=== PATIENT | male | born 1985 | race Caucasian/White ===

== ENCOUNTER 2016-05-18 13:15 | Emergency (ER) | payer MEDICAID ==
[~2016-05-18 13:15] MED LIST: AUGM875T27 PO; DICL75TA PO; IBUP80TA PO; PERCOCET PO
[2016-05-18] MEDS ORDERED: ONDANSETRON 4MG/2ML VIAL (J2405) As Ordered ONE (13:44)
[2016-05-18] MEDS ORDERED: KETOROLAC 30 MG/ML VIAL (J1885) As Ordered ONE (13:45)
--- NOTE | 2016-05-18 14:03 | REP ---
Clinical: Renal colic. Findings: Lung bases clear. Liver, spleen, pancreas, gallbladder, bilateral adrenal glands and kidneys are normal. The enteric system is without obstruction or acute inflammatory process. Normal appendix identified in the right lower quadrant. Pelvis demonstrates normal bladder and age appropriate prostate/seminal vesicles. No ascites. No free air. Musculoskeletal structures intact. Impression: Normal noncontrast CT of the abdomen and pelvis. No acute abdominopelvic pathology appreciated. Signed by Adal Giordano MD 05/18/2016 01:55 P
[2016-05-18 14:25] LABS: BASO % 0.5 % (0.0-1.0); EOS # 0.3 K/mm3 (0.0-0.50); EOS % 3.9 % (0.0-3.0); LARGE UNSTAINED CELL # 0.2 K/mm3 (0.0-0.4); LYMPH # 1.8 K/mm3 (1.5-4.5); LYMPH % 20.7 % (24.0-44.0); MEAN CORPUSCULAR HEMOGLOBIN 28.9 pg (27.0-33.0); MEAN CORPUSCULAR HGB CONC 32.9 g/dl (32.0-36.5); MEAN CORPUSCULAR VOLUME 87.8 fl (80.0-96.0); MONO # 0.5 K/mm3 (0.0-0.8); MONO % 6.8 % (0.0-5.0); NEUTROPHILS # 4.9 K/mm3 (1.8-7.7); PLATELET COUNT, AUTOMATED 351 k/mm3 (150-450); RED CELL DISTRIBUTION WIDTH 12.5 % (11.5-14.5); WHITE BLOOD COUNT 7.5 K/mm3 (4.0-10.0)
--- NOTE | 2016-05-18 14:27 | REP ---
Clinical: Testicular pain. Technique: Christina scale and color Doppler evaluation using linear and curved array transducer with color Doppler evaluation. Findings: The testicles and epididymi are relatively normal in contour, size, echogenicity, vascularity and overall appearance/contour. There is no evidence for intratesticular mass lesion, infectious/inflammatory process, with torsion. No obvious hydroceles or varicoceles are identified. Right testicle measures 5.3 x 2.2 x 3.6 cm. Left testicle measures 5.1 x 2.2 x 3.3 cm. Impression: Essentially normal scrotal ultrasound. No significant pathology appreciated. No evidence for torsion or infectious process. Signed by Adal Giordano MD 05/18/2016 02:18 P
[2016-05-18 14:56] LABS: ANION GAP 11 MEQ/L (8-16); BLOOD UREA NITROGEN 11 MG/DL (7-18); CALCIUM LEVEL 8.4 MG/DL (8.5-10.1); CARBON DIOXIDE LEVEL 24 MEQ/L (21-32); CHLORIDE LEVEL 107 MEQ/L (98-107); CREATININE FOR GFR 0.96 MG/DL (0.70-1.30); GLOMERULAR FILTRATION RATE > 60.0 (>60); GLUCOSE, FASTING 111 MG/DL (70-105); POTASSIUM SERUM 3.9 MEQ/L (3.5-5.1); SODIUM LEVEL 142 MEQ/L (136-145)
[2016-05-18] MEDS ORDERED: DOXYCYCLINE HYCLATE 100 MG TAB As Ordered ONE (15:34)
--- NOTE | 2016-05-18 15:45 | EDDOCDS ---
Physician Documentation [facility] Name: Chidi Carpenter Age: 31 yrs Sex: Male : 1985 Arrival Date: 05/18/2016 Time: 13:15 Bed I4 / M4 Private MD: No Pcp Disposition: 05/18/16 15:26 Discharged to Home/Self Care. Impression: Epididymitis - Clinically. - Condition is Stable. - Discharge Instructions: Epididymitis. - Prescriptions for Ibuprofen 600 mg Oral Tablet - take 1 tablet by ORAL route every 6 hours As needed take with food; 30 tablet. Doxycycline Hyclate 100 mg Oral Tablet - take 1 tablet by ORAL route every 12 hours; 20 tablet. - Medication Reconciliation, Local Pharmacy Hours, Referral List Call for Appointment form. - Follow up: Lisa Vega MD; When: 4 - 5 days; Reason: Continuance of care. Follow up: Emergency Department; When: As needed; Reason: Worsening of conditions. - Problem is new. - Symptoms are unchanged. Historical: - Allergies: Morphine (Hives); - Home Meds: 1. Xanax 0.25 mg Oral tab twice a day as needed 2. Prozac Unknown Oral once daily - PMHx: MRSA; Depression; Substance Abuse; - PSHx: right wrist for MRSA; - Social history: Smoking status: Patient uses tobacco products, heavy tobacco smoker. No barriers to communication noted, The patient speaks fluent Mozambican, Speaks appropriately for age. - Family history: Not pertinent. - : The pt / caregiver states he / she is not on anticoagulants. Home medication list is obtained from the patient. - Exposure Risk Screening:: None identified. Vital Signs: 05/18 13:17 BP 131 / 79; Pulse 70; Resp 18; Temp 98.1(O); Pulse Ox 100% on R/A; Weight 66.22 kg / lr2 145.99 lbs (R); Height 6 ft. 1 in. (185.42 cm) (R); Pain 10/10; 15:11 BP 131 / 71; Pulse 78; Resp 16; Temp 97.9(O); Pulse Ox 98% on R/A; Pain 10/10; dem1 13:17 Body Mass Index 19.26 (66.22 kg, 185.42 cm) lr2 MDM: 13:37 Ondansetron 4 mg IVP once ordered. dk1 13:37 ketorolac 30 mg IVP once ordered. dk1 13:37 IV Saline Lock ordered. dk1 13:38 Basic Metabolic Profile Ordered. EDMS 13:38 CBC with Diff Ordered. EDMS 13:38 Urinalysis Ordered. EDMS 13:38 Urine Culture Ordered. EDMS 13:39 US Scrotal Ordered. EDMS 13:39 CT ABD & PELVIS: No Contrast Ordered. EDMS 13:42 DUPLEX SCAN LIMITED (DOPPLER) Ordered. EDMS 14:53 CBC with Diff Reviewed. dk1 14:53 Urinalysis Reviewed. dk1 14:53 CT ABD & PELVIS: No Contrast Reviewed. dk1 14:55 GC & Chlamydia Amplification Ordered. EDMS 15:01 Financial registration complete. mm15 15:06 [facility] Payment Agreement was scanned into [email or web address] and attached to record. mm15 15:15 Basic Metabolic Profile Reviewed. dk1 15:15 US Scrotal Reviewed. dk1 15:27 Doxycycline 100 mg PO once ordered. dk1 15:31 Drug Eval Toxicology ED Only Ordered. EDMS Administered Medications: 14:16 Drug: Ondansetron 4 mg [ondansetron HCl 2 mg/mL intravenous solution (2 mL)] Route: rs3 IVP; Site: right hand; 14:16 Drug: ketorolac 30 mg [ketorolac 30 mg/mL (1 mL) injection solution (1 mL)] Route: IVP; rs3 Site: right hand; 15:39 Drug: Doxycycline 100 mg [doxycycline hyclate 100 mg tablet (1 tabs)] Route: PO; rs3 Signatures: Dispatcher [employer] EDSD Bassam Cardozo RN RN mlb1 Reinaldo Smith, PA-C PA-C dk1 Kathy Bang RN RN rs3 Nicholas Sarkar mm15 The chart was reviewed and I authenticate all verbal orders and agree with the evaluation and treatment provided.Attachments: 15:06 [facility] Payment Agreement mm15 MTDD
--- NOTE | 2016-05-18 15:45 | EDDOCDS ---
Nurse's Notes [facility] Name: Chidi Carpenter Age: 31 yrs Sex: Male : 1985 Arrival Date: 05/18/2016 Time: 13:15 Bed I4 / M4 Private MD: No Pcp Diagnosis: Epididymitis-Clinically Presentation: 05/18 13:19 Presenting complaint: Patient states: Testicular pain began a month ago hematuria since mlb1 last night. Adult Sepsis Screening: The patient does not have new or worsening altered mentation. Patient's respiratory rate is less than 22. Systolic blood pressure is greater than 100. Patient has a qSOFA score of 0- Negative Sepsis Screen. Suicide/Homicide risk assessment- the patient denies having any suicidal and/or homicidal ideations and does not present with any other emotional, behavioral or mental health complaints. Status: Patient is not a manager of allied health services or dependent. Transition of care: patient was not received from another setting of care. 13:19 Acuity: MAITE Level 3 mlb1 13:19 Method Of Arrival: Walkin/Carried/Asstd mlb1 Triage Assessment: 13:23 General: Appears in no apparent distress, Behavior is appropriate for age, cooperative. mlb1 Pain: Location: left testicle and right testicle Pain currently is 10 out of 10 on a pain scale. HIV screening NA for this visit Offered previously. Historical: - Allergies: Morphine (Hives); - Home Meds: 1. Xanax 0.25 mg Oral tab twice a day as needed 2. Prozac Unknown Oral once daily - PMHx: MRSA; Depression; Substance Abuse; - PSHx: right wrist for MRSA; - Social history: Smoking status: Patient uses tobacco products, heavy tobacco smoker. No barriers to communication noted, The patient speaks fluent Venezuelan, Speaks appropriately for age. - Family history: Not pertinent. - : The pt / caregiver states he / she is not on anticoagulants. Home medication list is obtained from the patient. - Exposure Risk Screening:: None identified. Screenin:42 Screening information is obtained from the patient. Fall risk: No risks identified. rs3 Assistance ADL's: requires no assistance with activities of daily living. Abuse/DV Screen: The patient / caregiver reports he/she is: not in a situation that causes fear, pain or injury. Nutritional screening: No deficits noted. Advance Directives: Currently, there is no health care proxy. home support is adequate. Assessment: 14:17 General: Appears in no apparent distress, Behavior is appropriate for age, cooperative. rs3 Pain: Location: right testicle and left testicle. Respiratory: Airway is patent Respiratory effort is even, unlabored. Derm: Skin is pink, warm & dry. 15:44 Reassessment: Patient appears in no apparent distress at this time. Patient denies pain rs3 at this time. Patient states feeling better. Patient states symptoms have improved. Vital Signs: 13:17 BP 131 / 79; Pulse 70; Resp 18; Temp 98.1(O); Pulse Ox 100% on R/A; Weight 66.22 kg lr2 (R); Height 6 ft. 1 in. (185.42 cm) (R); Pain 10/10; 15:11 BP 131 / 71; Pulse 78; Resp 16; Temp 97.9(O); Pulse Ox 98% on R/A; Pain 10/10; dem1 13:17 Body Mass Index 19.26 (66.22 kg, 185.42 cm) lr2 Vitals: 13:17 Log In Time: May 18, 2016 at 13:15. lr2 ED Course: 13:16 Patient visited by Angelika Mena. lr2 13:16 Patient moved to Waiting lr2 13:18 No Pcp is Private Physician. lr2 13:18 Patient moved to Pre RCE lr2 13:19 Patient visited by Bassam Cardozo, RN. mlb1 13:20 Triage Initiated mlb1 13:23 Patient visited by Bassam Cardozo, RN. mlb1 13:23 Patient moved to Triage 2 mlb1 13:29 Reinaldo Smith PA-C is PHCP. dk1 13:29 Sal Holley MD is Attending Physician. dk1 13:29 Patient visited by Reinaldo Smith PA-C. dk1 13:41 Patient moved to I4 / M4 ms18 13:[address] dem1 14:04 Patient moved to Ultrasound am10 14:04 Patient moved to I4 / M4 am10 14:17 CBC with Diff Sent. rs3 14:17 Basic Metabolic Profile Sent. rs3 14:17 Inserted saline lock: 20 gauge in right hand. No procedures done that require rs3 assistance. 14:24 Patient visited by Kathy Bang RN. rs3 14:27 CT ABD & PELVIS: No Contrast Returned. EDMS 15:06 [facility] [place] Agreement was scanned into [employer] and attached to record. mm15 15:07 US Scrotal Returned. EDMS 15:12 Patient visited by William Talley. dem1 15:14 GC & Chlamydia Amplification Sent. dem1 15:26 Lisa Vega MD is Referral Physician. dk1 15:44 Patient visited by William Talley. dem1 15:44 The patient / caregiver is instructed regarding the plan of care and ED course. rs3 15:44 Drug Eval Toxicology ED Only Sent. dem1 Administered Medications: 14:16 Drug: Ondansetron 4 mg [ondansetron HCl 2 mg/mL intravenous solution (2 mL)] Route: rs3 IVP; Site: right hand; 14:16 Drug: ketorolac 30 mg [ketorolac 30 mg/mL (1 mL) injection solution (1 mL)] Route: IVP; rs3 Site: right hand; 15:39 Drug: Doxycycline 100 mg [doxycycline hyclate 100 mg tablet (1 tabs)] Route: PO; rs3 Order Results: Lab Order: Basic Metabolic Profile; SPEC'M 05/18/16 14:10 Test: GLUCOSE, FASTING; Value: 111; Range: 70-105; Abnormal: Above high normal; Units: MG/DL; Status: F Test: BLOOD UREA NITROGEN; Value: 11; Range: 7-18; Units: MG/DL; Status: F Test: CREATININE FOR GFR; Value: 0.96; Range: 0.70-1.30; Units: MG/DL; Status: F Test: GLOMERULAR FILTRATION RATE; Value: > 60.0; Range: >60; Status: F Test: SODIUM LEVEL; Value: 142; Range: 136-145; Units: MEQ/L; Status: F Test: POTASSIUM SERUM; Value: 3.9; Range: 3.5-5.1; Units: MEQ/L; Status: F Test: CHLORIDE LEVEL; Value: 107; Range: 98-107; Units: MEQ/L; Status: F Test: CARBON DIOXIDE LEVEL; Value: 24; Range: 21-32; Units: MEQ/L; Status: F Test: ANION GAP; Value: 11; Range: 8-16; Units: MEQ/L; Status: F Test: CALCIUM LEVEL; Value: 8.4; Range: 8.5-10.1; Abnormal: Below low normal; Units: MG/DL; Status: F Test Note: ; Units are mL/min/1.73 m2 Chronic Kidney Disease Staging per NKF: Stage I & II GFR >=60 Normal to Mildly Decreased Stage III GFR 30-59 Moderately Decreased Stage IV GFR 15-29 Severely Decreased Stage V GFR <15 Very Little GFR Left ESRD GFR <15 on BRONC BUSTER Lab Order: CBC with Diff; SPEC'M 05/18/16 14:10 Test: WHITE BLOOD COUNT; Value: 7.5; Range: 4.0-10.0; Units: K/mm3; Status: F Test: RED BLOOD COUNT; Value: 5.46; Range: 4.30-6.10; Units: M/mm3; Status: F Test: HEMOGLOBIN; Value: 15.8; Range: 14.0-18.0; Units: g/dl; Status: F Test: HEMATOCRIT; Value: 47.9; Range: 42.0-52.0; Units: %; Status: F Test: MEAN CORPUSCULAR VOLUME; Value: 87.8; Range: 80.0-96.0; Units: fl; Status: F Test: MEAN CORPUSCULAR HEMOGLOBIN; Value: 28.9; Range: 27.0-33.0; Units: pg; Status: F Test: MEAN CORPUSCULAR HGB CONC; Value: 32.9; Range: 32.0-36.5; Units: g/dl; Status: F Test: RED CELL DISTRIBUTION WIDTH; Value: 12.5; Range: 11.5-14.5; Units: %; Status: F Test: PLATELET COUNT, AUTOMATED; Value: 351; Range: 150-450; Units: k/mm3; Status: F Test: NEUTROPHILS %; Value: 65.0; Range: 36.0-66.0; Units: %; Status: F Test: LYMPH %; Value: 20.7; Range: 24.0-44.0; Abnormal: Below low normal; Units: %; Status: F Test: MONO %; Value: 6.8; Range: 0.0-5.0; Abnormal: Above high normal; Units: %; Status: F Test: EOS %; Value: 3.9; Range: 0.0-3.0; Abnormal: Above high normal; Units: %; Status: F Test: BASO %; Value: 0.5; Range: 0.0-1.0; Units: %; Status: F Test: LARGE UNSTAINED CELL %; Value: 3.0; Range: 0.0-4.0; Units: %; Status: F Test: NEUTROPHILS #; Value: 4.9; Range: 1.8-7.7; Units: K/mm3; Status: F Test: LYMPH #; Value: 1.8; Range: 1.5-4.5; Units: K/mm3; Status: F Test: MONO #; Value: 0.5; Range: 0.0-0.8; Units: K/mm3; Status: F Test: EOS #; Value: 0.3; Range: 0.0-0.50; Units: K/mm3; Status: F Test: BASO #; Value: 0.0; Range: 0.0-0.2; Units: K/mm3; Status: F Test: LARGE UNSTAINED CELL #; Value: 0.2; Range: 0.0-0.4; Units: K/mm3; Status: F Lab Order: Urinalysis; SPEC'M 05/18/16 13:45 Test: APPEARANCE, URINE; Value: CLEAR; Range: CLEAR; Status: F Test: COLOR, URINE; Value: ELIZABETH; Range: YELLOW; Status: F Test: PH,URINE; Value: 6.0; Range: 5.0-9.0; Units: UNITS; Status: F Test: SPECIFIC GRAVITY URINE AUTO; Value: 1.038; Range: 1.002-1.035; Status: F Test: PROTEIN, URINE AUTO; Value: 1+; Range: NEGATIVE; Abnormal: Above high normal; Units: mg/dL; Status: F Test: GLUCOSE, URINE (UA) AUTO; Value: NEGATIVE; Range: NEGATIVE; Units: mg/dL; Status: F Test: KETONE, URINE AUTO; Value: TRACE; Range: NEGATIVE; Abnormal: Above high normal; Units: mg/dL; Status: F Test: UROBILINOGEN, URINE AUTO; Value: 4.0; Range: 0.0-2.0; Abnormal: Above high normal; Units: mg/dL; Status: F Test: BILIRUBIN, URINE AUTO; Value: NEGATIVE; Range: NEGATIVE; Status: F Test: NITRITE, URINE AUTO; Value: NEGATIVE; Range: NEGATIVE; Status: F Test: LEUKOCYTE ESTERASE, URINE AUTO; Value: NEGATIVE; Range: NEGATIVE; Status: F Test: BLOOD, URINE BLOOD; Value: NEGATIVE; Range: NEGATIVE; Status: F Test: WBC, URINE AUTO; Value: 0; Range: 0-3; Units: /HPF; Status: F Test: RBC, URINE AUTO; Value: 2; Range: 0-3; Units: /HPF; Status: F Test: BACTERIA, URINE AUTO; Value: NEGATIVE; Range: NEGATIVE; Status: F Test: SQUAMOUS EPITHELIAL CELL UR AU; Value: 1; Range: 0-6; Units: /HPF; Status: F Test: MUCUS, URINE; Value: SMALL; Range: NEGATIVE; Status: F Test: HYALINE CAST, URINE AUTO; Value: 0; Range: 0-1; Units: /LPF; Status: F Radiology Order: CT ABD & PELVIS: No Contrast Test: CT ABD & PELVIS: No Contrast REASON FOR EXAMINATION: Renal colic; Clinical: Renal colic.; ; Findings:; Lung bases clear.; ; Liver, spleen, pancreas, gallbladder, bilateral adrenal glands and kidneys are; normal. The enteric system is without obstruction or acute inflammatory process.; Normal appendix identified in the right lower quadrant. Pelvis demonstrates; normal bladder and age appropriate prostate/seminal vesicles. No ascites. No; free air. Musculoskeletal structures intact.; ; Impression:; Normal noncontrast CT of the abdomen and pelvis.; No acute abdominopelvic pathology appreciated.; ; ; Signed by; Adal Giordano MD 05/18/2016 01:55 P; Radiology Order: US Scrotal Test: US Scrotal REASON FOR EXAMINATION: testicular pain; Clinical: Testicular pain.; ; Technique: Christina scale and color Doppler evaluation using linear and curved array; transducer with color Doppler evaluation.; ; Findings:; The testicles and epididymi are relatively normal in contour, size, echogenicity,; vascularity and overall appearance/contour. There is no evidence for; intratesticular mass lesion, infectious/inflammatory process, with torsion. No; obvious hydroceles or varicoceles are identified.; ; Right testicle measures 5.3 x 2.2 x 3.6 cm.; Left testicle measures 5.1 x 2.2 x 3.3 cm.; ; Impression:; Essentially normal scrotal ultrasound.; No significant pathology appreciated.; No evidence for torsion or infectious process.; ; ; Signed by; Adal Giordano MD 05/18/2016 02:18 P; Outcome: 15:26 Discharge ordered by Provider. dk1 15:42 Discharge Assessment: patient administered narcotics - no. The following High Risk rs3 Discharge criteria are identified: None. Discharged to home with family. Condition: stable. Discharge instructions given to patient, Instructed on discharge instructions, follow up and referral plans. medication usage, Demonstrated understanding of instructions, medications, Pt was receptive of discharge instructions/ teaching. Prescriptions given X 2. Ultrasound Study completed. Property :Personal belongings accompany Pt. 15:44 Patient left the ED. rs3 Signatures: Dispatcher [employer] EDMS Bassam Cardozo RN RN mlb1 Reinaldo Smith, PA-C PA-C dk1 Zoila Bravo am10 Kathy Bang,RN RN rs3 William Talley1 Nicholas Sarkar mm15 Cami Kendall RN RN ms18 Angelika Mena2 MTDD
[2016-05-18 16:13] LABS: AMPHETAMINES LEVEL URINE POSITIVE (NEGATIVE); BENZODIAZEPINES URINE POSITIVE (NEGATIVE); COCAINE METABOLITE URINE POSITIVE (NEGATIVE); CONTROL LINE INT CTR LINE PRESENT; METHADONE URINE NEGATIVE (NEGATIVE); OPIATES URINE POSITIVE (NEGATIVE); TRICYCLIC ANTIDEPRESS URINE NEGATIVE (NEGATIVE)
--- NOTE | 2016-05-20 16:45 | EDDOCDS ---
Physician Documentation [facility] Name: Chidi Carpenter Age: 31 yrs Sex: Male : 1985 Arrival Date: 05/18/2016 Time: 13:15 Bed I4 / M4 Private MD: No Pcp Disposition: 05/18/16 15:26 Discharged to Home/Self Care. Impression: Epididymitis - Clinically. - Condition is Stable. - Discharge Instructions: Epididymitis. - Prescriptions for Ibuprofen 600 mg Oral Tablet - take 1 tablet by ORAL route every 6 hours As needed take with food; 30 tablet. Doxycycline Hyclate 100 mg Oral Tablet - take 1 tablet by ORAL route every 12 hours; 20 tablet. - Medication Reconciliation, Local Pharmacy Hours, Referral List Call for Appointment form. - Follow up: Lisa Vega MD; When: 4 - 5 days; Reason: Continuance of care. Follow up: Emergency Department; When: As needed; Reason: Worsening of conditions. - Problem is new. - Symptoms are unchanged. Historical: - Allergies: Morphine (Hives); - Home Meds: 1. Xanax 0.25 mg Oral tab twice a day as needed 2. Prozac Unknown Oral once daily - PMHx: MRSA; Depression; Substance Abuse; - PSHx: right wrist for MRSA; - Social history: Smoking status: Patient uses tobacco products, heavy tobacco smoker. No barriers to communication noted, The patient speaks fluent Taiwanese, Speaks appropriately for age. - Family history: Not pertinent. - : The pt / caregiver states he / she is not on anticoagulants. Home medication list is obtained from the patient. - Exposure Risk Screening:: None identified. Vital Signs: 05/18 13:17 BP 131 / 79; Pulse 70; Resp 18; Temp 98.1(O); Pulse Ox 100% on R/A; Weight 66.22 kg / lr2 145.99 lbs (R); Height 6 ft. 1 in. (185.42 cm) (R); Pain 10/10; 15:11 BP 131 / 71; Pulse 78; Resp 16; Temp 97.9(O); Pulse Ox 98% on R/A; Pain 10/10; dem1 13:17 Body Mass Index 19.26 (66.22 kg, 185.42 cm) lr2 MDM: 13:37 Ondansetron 4 mg IVP once ordered. dk1 13:37 ketorolac 30 mg IVP once ordered. dk1 13:37 IV Saline Lock ordered. dk1 13:38 Basic Metabolic Profile Ordered. EDMS 13:38 CBC with Diff Ordered. EDMS 13:38 Urinalysis Ordered. EDMS 13:38 Urine Culture Ordered. EDMS 13:39 US Scrotal Ordered. EDMS 13:39 CT ABD & PELVIS: No Contrast Ordered. EDMS 13:42 DUPLEX SCAN LIMITED (DOPPLER) Ordered. EDMS 14:53 CBC with Diff Reviewed. dk1 14:53 Urinalysis Reviewed. dk1 14:53 CT ABD & PELVIS: No Contrast Reviewed. dk1 14:55 GC & Chlamydia Amplification Ordered. EDMS 15:01 Financial registration complete. mm15 15:06 [facility] Payment Agreement was scanned into [employer] and attached to record. mm15 15:15 Basic Metabolic Profile Reviewed. dk1 15:15 US Scrotal Reviewed. dk1 15:27 Doxycycline 100 mg PO once ordered. dk1 15:31 Drug Eval Toxicology ED Only Ordered. EDCT 05/19 08:52 T-Sheet-- Draft Copy was scanned into [employer] and attached to record. [facility] Administered Medications: 05/18 14:16 Drug: Ondansetron 4 mg [ondansetron HCl 2 mg/mL intravenous solution (2 mL)] Route: rs3 IVP; Site: right hand; 14:16 Drug: ketorolac 30 mg [ketorolac 30 mg/mL (1 mL) injection solution (1 mL)] Route: IVP; rs3 Site: right hand; 15:39 Drug: Doxycycline 100 mg [doxycycline hyclate 100 mg tablet (1 tabs)] Route: PO; rs3 Signatures: Dispatcher [employer] [facility] Bassam Cardozo RN RN mlb1 Reinaldo Smith PA-C PA-C dk1 Kathy Bang RN RN rs3 Nicholas Sarkar 15 Mary Beth Sanchez [facility] The chart was reviewed and I authenticate all verbal orders and agree with the evaluation and treatment provided.Attachments: 15:06 [facility] Payment Agreement [facility] 05/19 08:52 T-Sheet-- Draft Copy [facility] Chart Complete MTDD
--- NOTE | 2016-05-20 16:45 | EDDOCDS ---
Nurse's Notes [facility] Name: Chidi Carpenter Age: 31 yrs Sex: Male : 1985 Arrival Date: 05/18/2016 Time: 13:15 Bed I4 / M4 Private MD: No Pcp Diagnosis: Epididymitis-Clinically Presentation: 05/18 13:19 Presenting complaint: Patient states: Testicular pain began a month ago hematuria since mlb1 last night. Adult Sepsis Screening: The patient does not have new or worsening altered mentation. Patient's respiratory rate is less than 22. Systolic blood pressure is greater than 100. Patient has a qSOFA score of 0- Negative Sepsis Screen. Suicide/Homicide risk assessment- the patient denies having any suicidal and/or homicidal ideations and does not present with any other emotional, behavioral or mental health complaints. Status: Patient is not a customer service advisor or dependent. Transition of care: patient was not received from another setting of care. 13:19 Acuity: MAITE Level 3 mlb1 13:19 Method Of Arrival: Walkin/Carried/Asstd mlb1 Triage Assessment: 13:23 General: Appears in no apparent distress, Behavior is appropriate for age, cooperative. mlb1 Pain: Location: left testicle and right testicle Pain currently is 10 out of 10 on a pain scale. HIV screening NA for this visit Offered previously. Historical: - Allergies: Morphine (Hives); - Home Meds: 1. Xanax 0.25 mg Oral tab twice a day as needed 2. Prozac Unknown Oral once daily - PMHx: MRSA; Depression; Substance Abuse; - PSHx: right wrist for MRSA; - Social history: Smoking status: Patient uses tobacco products, heavy tobacco smoker. No barriers to communication noted, The patient speaks fluent Faroese, Speaks appropriately for age. - Family history: Not pertinent. - : The pt / caregiver states he / she is not on anticoagulants. Home medication list is obtained from the patient. - Exposure Risk Screening:: None identified. Screenin:42 Screening information is obtained from the patient. Fall risk: No risks identified. rs3 Assistance ADL's: requires no assistance with activities of daily living. Abuse/DV Screen: The patient / caregiver reports he/she is: not in a situation that causes fear, pain or injury. Nutritional screening: No deficits noted. Advance Directives: Currently, there is no health care proxy. home support is adequate. Assessment: 14:17 General: Appears in no apparent distress, Behavior is appropriate for age, cooperative. rs3 Pain: Location: right testicle and left testicle. Respiratory: Airway is patent Respiratory effort is even, unlabored. Derm: Skin is pink, warm & dry. 15:44 Reassessment: Patient appears in no apparent distress at this time. Patient denies pain rs3 at this time. Patient states feeling better. Patient states symptoms have improved. Vital Signs: 13:17 BP 131 / 79; Pulse 70; Resp 18; Temp 98.1(O); Pulse Ox 100% on R/A; Weight 66.22 kg lr2 (R); Height 6 ft. 1 in. (185.42 cm) (R); Pain 10/10; 15:11 BP 131 / 71; Pulse 78; Resp 16; Temp 97.9(O); Pulse Ox 98% on R/A; Pain 10/10; dem1 13:17 Body Mass Index 19.26 (66.22 kg, 185.42 cm) lr2 Vitals: 13:17 Log In Time: May 18, 2016 at 13:15. lr2 ED Course: 13:16 Patient visited by Angelika Mena. lr2 13:16 Patient moved to Waiting lr2 13:18 No Pcp is Private Physician. lr2 13:18 Patient moved to Pre RCE lr2 13:19 Patient visited by Bassam Cardozo, RN. mlb1 13:20 Triage Initiated mlb1 13:23 Patient visited by Bassam Cardozo, RN. mlb1 13:23 Patient moved to Triage 2 mlb1 13:29 Reinaldo Smith PA-C is PHCP. dk1 13:29 Sal Holley MD is Attending Physician. dk1 13:29 Patient visited by Reinaldo Smith PA-C. dk1 13:41 Patient moved to I4 / M4 ms18 13:[address] dem1 14:04 Patient moved to Ultrasound am10 14:04 Patient moved to I4 / M4 am10 14:17 CBC with Diff Sent. rs3 14:17 Basic Metabolic Profile Sent. rs3 14:17 Inserted saline lock: 20 gauge in right hand. No procedures done that require rs3 assistance. 14:24 Patient visited by Kathy Bang RN. rs3 14:27 CT ABD & PELVIS: No Contrast Returned. EDMS 15:06 [facility] [place] was scanned into [employer] and attached to record. mm15 15:07 US Scrotal Returned. EDMS 15:12 Patient visited by William Talley. dem1 15:14 GC & Chlamydia Amplification Sent. dem1 15:26 Lisa Vega MD is Referral Physician. dk1 15:44 Patient visited by William Talley. dem1 15:44 The patient / caregiver is instructed regarding the plan of care and ED course. rs3 15:44 Drug Eval Toxicology ED Only Sent. dem1 05/19 08:52 T-Sheet-- Draft Copy was scanned into [employer] and attached to record. [facility] Administered Medications: 05/18 14:16 Drug: Ondansetron 4 mg [ondansetron HCl 2 mg/mL intravenous solution (2 mL)] Route: rs3 IVP; Site: right hand; 14:16 Drug: ketorolac 30 mg [ketorolac 30 mg/mL (1 mL) injection solution (1 mL)] Route: IVP; rs3 Site: right hand; 15:39 Drug: Doxycycline 100 mg [doxycycline hyclate 100 mg tablet (1 tabs)] Route: PO; rs3 Order Results: Lab Order: Basic Metabolic Profile; SPEC'M 05/18/16 14:10 Test: GLUCOSE, FASTING; Value: 111; Range: 70-105; Abnormal: Above high normal; Units: MG/DL; Status: F Test: BLOOD UREA NITROGEN; Value: 11; Range: 7-18; Units: MG/DL; Status: F Test: CREATININE FOR GFR; Value: 0.96; Range: 0.70-1.30; Units: MG/DL; Status: F Test: GLOMERULAR FILTRATION RATE; Value: > 60.0; Range: >60; Status: F Test: SODIUM LEVEL; Value: 142; Range: 136-145; Units: MEQ/L; Status: F Test: POTASSIUM SERUM; Value: 3.9; Range: 3.5-5.1; Units: MEQ/L; Status: F Test: CHLORIDE LEVEL; Value: 107; Range: 98-107; Units: MEQ/L; Status: F Test: CARBON DIOXIDE LEVEL; Value: 24; Range: 21-32; Units: MEQ/L; Status: F Test: ANION GAP; Value: 11; Range: 8-16; Units: MEQ/L; Status: F Test: CALCIUM LEVEL; Value: 8.4; Range: 8.5-10.1; Abnormal: Below low normal; Units: MG/DL; Status: F Test Note: ; Units are mL/min/1.73 m2 Chronic Kidney Disease Staging per NKF: Stage I & II GFR >=60 Normal to Mildly Decreased Stage III GFR 30-59 Moderately Decreased Stage IV GFR 15-29 Severely Decreased Stage V GFR <15 Very Little GFR Left ESRD GFR <15 on BODY FORMER Lab Order: CBC with Diff; SPEC'M 05/18/16 14:10 Test: WHITE BLOOD COUNT; Value: 7.5; Range: 4.0-10.0; Units: K/mm3; Status: F Test: RED BLOOD COUNT; Value: 5.46; Range: 4.30-6.10; Units: M/mm3; Status: F Test: HEMOGLOBIN; Value: 15.8; Range: 14.0-18.0; Units: g/dl; Status: F Test: HEMATOCRIT; Value: 47.9; Range: 42.0-52.0; Units: %; Status: F Test: MEAN CORPUSCULAR VOLUME; Value: 87.8; Range: 80.0-96.0; Units: fl; Status: F Test: MEAN CORPUSCULAR HEMOGLOBIN; Value: 28.9; Range: 27.0-33.0; Units: pg; Status: F Test: MEAN CORPUSCULAR HGB CONC; Value: 32.9; Range: 32.0-36.5; Units: g/dl; Status: F Test: RED CELL DISTRIBUTION WIDTH; Value: 12.5; Range: 11.5-14.5; Units: %; Status: F Test: PLATELET COUNT, AUTOMATED; Value: 351; Range: 150-450; Units: k/mm3; Status: F Test: NEUTROPHILS %; Value: 65.0; Range: 36.0-66.0; Units: %; Status: F Test: LYMPH %; Value: 20.7; Range: 24.0-44.0; Abnormal: Below low normal; Units: %; Status: F Test: MONO %; Value: 6.8; Range: 0.0-5.0; Abnormal: Above high normal; Units: %; Status: F Test: EOS %; Value: 3.9; Range: 0.0-3.0; Abnormal: Above high normal; Units: %; Status: F Test: BASO %; Value: 0.5; Range: 0.0-1.0; Units: %; Status: F Test: LARGE UNSTAINED CELL %; Value: 3.0; Range: 0.0-4.0; Units: %; Status: F Test: NEUTROPHILS #; Value: 4.9; Range: 1.8-7.7; Units: K/mm3; Status: F Test: LYMPH #; Value: 1.8; Range: 1.5-4.5; Units: K/mm3; Status: F Test: MONO #; Value: 0.5; Range: 0.0-0.8; Units: K/mm3; Status: F Test: EOS #; Value: 0.3; Range: 0.0-0.50; Units: K/mm3; Status: F Test: BASO #; Value: 0.0; Range: 0.0-0.2; Units: K/mm3; Status: F Test: LARGE UNSTAINED CELL #; Value: 0.2; Range: 0.0-0.4; Units: K/mm3; Status: F Lab Order: Urinalysis; SPEC'M 05/18/16 13:45 Test: APPEARANCE, URINE; Value: CLEAR; Range: CLEAR; Status: F Test: COLOR, URINE; Value: ELIZABETH; Range: YELLOW; Status: F Test: PH,URINE; Value: 6.0; Range: 5.0-9.0; Units: UNITS; Status: F Test: SPECIFIC GRAVITY URINE AUTO; Value: 1.038; Range: 1.002-1.035; Status: F Test: PROTEIN, URINE AUTO; Value: 1+; Range: NEGATIVE; Abnormal: Above high normal; Units: mg/dL; Status: F Test: GLUCOSE, URINE (UA) AUTO; Value: NEGATIVE; Range: NEGATIVE; Units: mg/dL; Status: F Test: KETONE, URINE AUTO; Value: TRACE; Range: NEGATIVE; Abnormal: Above high normal; Units: mg/dL; Status: F Test: UROBILINOGEN, URINE AUTO; Value: 4.0; Range: 0.0-2.0; Abnormal: Above high normal; Units: mg/dL; Status: F Test: BILIRUBIN, URINE AUTO; Value: NEGATIVE; Range: NEGATIVE; Status: F Test: NITRITE, URINE AUTO; Value: NEGATIVE; Range: NEGATIVE; Status: F Test: LEUKOCYTE ESTERASE, URINE AUTO; Value: NEGATIVE; Range: NEGATIVE; Status: F Test: BLOOD, URINE BLOOD; Value: NEGATIVE; Range: NEGATIVE; Status: F Test: WBC, URINE AUTO; Value: 0; Range: 0-3; Units: /HPF; Status: F Test: RBC, URINE AUTO; Value: 2; Range: 0-3; Units: /HPF; Status: F Test: BACTERIA, URINE AUTO; Value: NEGATIVE; Range: NEGATIVE; Status: F Test: SQUAMOUS EPITHELIAL CELL UR AU; Value: 1; Range: 0-6; Units: /HPF; Status: F Test: MUCUS, URINE; Value: SMALL; Range: NEGATIVE; Status: F Test: HYALINE CAST, URINE AUTO; Value: 0; Range: 0-1; Units: /LPF; Status: F Lab Order: Urine Culture; SPEC'M 05/18/16 13:45 Test: URINE CULTURE; Value: <EXTERNAL COMMENT eCWMed> FULL REPORT IN LAB NOTES (eCW and Medent).; Status: F Test: URINE CULTURE; Value: ORGANISM 1: STREP AGALACTIAE GROUP B; Status: F Test: URINE CULTURE; Value: STREP AGALACTIAE GROUP B; Status: F Test: URINE CULTURE; Value: COLONY COUNT CFU/ml 20,000; Status: F Test: URINE CULTURE; Value: GRAM POS SENSI - ST02; Status: F Test: URINE CULTURE; Value: Method: VIT2; Status: F Test: URINE CULTURE; Value: ICR (INDUCIBLE CC RESISTANCE) -; Status: F Test: URINE CULTURE; Value: TETRACYCLINE >=16 R; Status: F Test: URINE CULTURE; Value: PENICILLIN G <=0.06 S; Status: F Test: URINE CULTURE; Value: TRIMETHOPRIM/SULFAMETHOXAZOLE <=10 S; Status: F Test: URINE CULTURE; Value: AMPICILLIN <=0.25 S; Status: F Test: URINE CULTURE; Value: ERYTHROMYCIN >=8 R; Status: F Test: URINE CULTURE; Value: LEVOFLOXACIN 1 S; Status: F Test: URINE CULTURE; Value: VANCOMYCIN 0.5 S; Status: F Test: URINE CULTURE; Value: MOXIFLOXACIN (AVELOX) 0.12 S; Status: F Test: URINE CULTURE; Value: CEFTRIAXONE <=0.12 S; Status: F Test: URINE CULTURE; Value: CEFOTAXIME <=0.12 S; Status: F Lab Order: GC & Chlamydia Amplification; SPEC'M 05/18/16 15:14 Test: CHLAMYDIA DNA AMPLIFICATION; Value: NEGATIVE; Range: NEGATIVE; Status: F Test: GC DNA AMPLIFICATION; Value: NEGATIVE; Range: NEGATIVE; Status: F Lab Order: Drug Eval Toxicology ED Only; SPEC'M 05/18/16 15:14 Test: AMPHETAMINES LEVEL URINE; Value: POSITIVE; Range: NEGATIVE; Abnormal: Above high normal; Status: F Test: BARBITURATES URINE; Value: POSITIVE; Range: NEGATIVE; Abnormal: Above high normal; Status: F Test: BENZODIAZEPINES URINE; Value: POSITIVE; Range: NEGATIVE; Abnormal: Above high normal; Status: F Test: CANNABINOIDS URINE; Value: POSITIVE; Range: NEGATIVE; Abnormal: Above high normal; Status: F Test: COCAINE METABOLITE URINE; Value: POSITIVE; Range: NEGATIVE; Abnormal: Above high normal; Status: F Test: METHADONE URINE; Value: NEGATIVE; Range: NEGATIVE; Status: F Test: OPIATES URINE; Value: POSITIVE; Range: NEGATIVE; Abnormal: Above high normal; Status: F Test: TRICYCLIC ANTIDEPRESS URINE; Value: NEGATIVE; Range: NEGATIVE; Status: F Test Note: ; FALSE POSITIVE RESULTS CAN BE CAUSED BY THE USE OF PANTOPRAZOLE (PROTONIX). Radiology Order: CT ABD & PELVIS: No Contrast Test: CT ABD & PELVIS: No Contrast REASON FOR EXAMINATION: Renal colic; Clinical: Renal colic.; ; Findings:; Lung bases clear.; ; Liver, spleen, pancreas, gallbladder, bilateral adrenal glands and kidneys are; normal. The enteric system is without obstruction or acute inflammatory process.; Normal appendix identified in the right lower quadrant. Pelvis demonstrates; normal bladder and age appropriate prostate/seminal vesicles. No ascites. No; free air. Musculoskeletal structures intact.; ; Impression:; Normal noncontrast CT of the abdomen and pelvis.; No acute abdominopelvic pathology appreciated.; ; ; Signed by; Adal Giordano MD 05/18/2016 01:55 P; Radiology Order: US Scrotal Test: US Scrotal REASON FOR EXAMINATION: testicular pain; Clinical: Testicular pain.; ; Technique: Christina scale and color Doppler evaluation using linear and curved array; transducer with color Doppler evaluation.; ; Findings:; The testicles and epididymi are relatively normal in contour, size, echogenicity,; vascularity and overall appearance/contour. There is no evidence for; intratesticular mass lesion, infectious/inflammatory process, with torsion. No; obvious hydroceles or varicoceles are identified.; ; Right testicle measures 5.3 x 2.2 x 3.6 cm.; Left testicle measures 5.1 x 2.2 x 3.3 cm.; ; Impression:; Essentially normal scrotal ultrasound.; No significant pathology appreciated.; No evidence for torsion or infectious process.; ; ; Signed by; Adal Giordano MD 05/18/2016 02:18 P; Outcome: 15:26 Discharge ordered by Provider. dk1 15:42 Discharge Assessment: patient administered narcotics - no. The following High Risk rs3 Discharge criteria are identified: None. Discharged to home with family. Condition: stable. Discharge instructions given to patient, Instructed on discharge instructions, follow up and referral plans. medication usage, Demonstrated understanding of instructions, medications, Pt was receptive of discharge instructions/ teaching. Prescriptions given X 2. Ultrasound Study completed. Property :Personal belongings accompany Pt. 15:44 Patient left the ED. rs3 Signatures: Dispatcher [employer] EDOR Bassam Cardozo RN RN mlb1 Reinaldo Smith, PA-C PA-C dk1 Zoila Bravo am10 Kathy BangRN RN rs3 William Talley1 Nicholas Sarkar mm15 Cami Kendall RN RN ms18 Mary Beth Sanchez Laura lr2 Chart Complete MTDD
--- NOTE | 2016-05-20 16:45 | EDDOCDS ---
Physician Documentation [facility] Name: Chidi Carpenter Age: 31 yrs Sex: Male : 1985 Arrival Date: 05/18/2016 Time: 13:15 Bed I4 / M4 Private MD: No Pcp Disposition: 05/18/16 15:26 Discharged to Home/Self Care. Impression: Epididymitis - Clinically. - Condition is Stable. - Discharge Instructions: Epididymitis. - Prescriptions for Ibuprofen 600 mg Oral Tablet - take 1 tablet by ORAL route every 6 hours As needed take with food; 30 tablet. Doxycycline Hyclate 100 mg Oral Tablet - take 1 tablet by ORAL route every 12 hours; 20 tablet. - Medication Reconciliation, Local Pharmacy Hours, Referral List Call for Appointment form. - Follow up: Lisa Vega MD; When: 4 - 5 days; Reason: Continuance of care. Follow up: Emergency Department; When: As needed; Reason: Worsening of conditions. - Problem is new. - Symptoms are unchanged. Historical: - Allergies: Morphine (Hives); - Home Meds: 1. Xanax 0.25 mg Oral tab twice a day as needed 2. Prozac Unknown Oral once daily - PMHx: MRSA; Depression; Substance Abuse; - PSHx: right wrist for MRSA; - Social history: Smoking status: Patient uses tobacco products, heavy tobacco smoker. No barriers to communication noted, The patient speaks fluent Wallisian, Speaks appropriately for age. - Family history: Not pertinent. - : The pt / caregiver states he / she is not on anticoagulants. Home medication list is obtained from the patient. - Exposure Risk Screening:: None identified. Vital Signs: 05/18 13:17 BP 131 / 79; Pulse 70; Resp 18; Temp 98.1(O); Pulse Ox 100% on R/A; Weight 66.22 kg / lr2 145.99 lbs (R); Height 6 ft. 1 in. (185.42 cm) (R); Pain 10/10; 15:11 BP 131 / 71; Pulse 78; Resp 16; Temp 97.9(O); Pulse Ox 98% on R/A; Pain 10/10; dem1 13:17 Body Mass Index 19.26 (66.22 kg, 185.42 cm) lr2 MDM: 13:37 Ondansetron 4 mg IVP once ordered. dk1 13:37 ketorolac 30 mg IVP once ordered. dk1 13:37 IV Saline Lock ordered. dk1 13:38 Basic Metabolic Profile Ordered. EDMS 13:38 CBC with Diff Ordered. EDMS 13:38 Urinalysis Ordered. EDMS 13:38 Urine Culture Ordered. EDMS 13:39 US Scrotal Ordered. EDMS 13:39 CT ABD & PELVIS: No Contrast Ordered. EDMS 13:42 DUPLEX SCAN LIMITED (DOPPLER) Ordered. EDMS 14:53 CBC with Diff Reviewed. dk1 14:53 Urinalysis Reviewed. dk1 14:53 CT ABD & PELVIS: No Contrast Reviewed. dk1 14:55 GC & Chlamydia Amplification Ordered. EDMS 15:01 Financial registration complete. mm15 15:06 [facility] Payment Agreement was scanned into [employer] and attached to record. mm15 15:15 Basic Metabolic Profile Reviewed. dk1 15:15 US Scrotal Reviewed. dk1 15:27 Doxycycline 100 mg PO once ordered. dk1 15:31 Drug Eval Toxicology ED Only Ordered. EDMO 05/19 08:52 T-Sheet-- Draft Copy was scanned into [employer] and attached to record. [facility] Administered Medications: 05/18 14:16 Drug: Ondansetron 4 mg [ondansetron HCl 2 mg/mL intravenous solution (2 mL)] Route: rs3 IVP; Site: right hand; 14:16 Drug: ketorolac 30 mg [ketorolac 30 mg/mL (1 mL) injection solution (1 mL)] Route: IVP; rs3 Site: right hand; 15:39 Drug: Doxycycline 100 mg [doxycycline hyclate 100 mg tablet (1 tabs)] Route: PO; rs3 Signatures: Dispatcher [employer] [facility] Bassam Cardozo RN RN mlb1 Reinaldo Smith PA-C PA-C dk1 Kathy Bang RN RN rs3 Nicholas Sarkar 15 Mary Beth Sanchez [facility] The chart was reviewed and I authenticate all verbal orders and agree with the evaluation and treatment provided.Attachments: 15:06 [facility] Payment Agreement [facility] 05/19 08:52 T-Sheet-- Draft Copy [facility] Chart Complete MTDD
--- NOTE | 2016-05-23 10:10 | EDDOCDS ---
Physician Documentation [facility] Name: Chidi Carpenter Age: 31 yrs Sex: Male : 1985 Arrival Date: 05/18/2016 Time: 13:15 Bed I4 / M4 Private MD: No Pcp Disposition: 05/18/16 15:26 Discharged to Home/Self Care. Impression: Epididymitis - Clinically. - Condition is Stable. - Discharge Instructions: Epididymitis. - Prescriptions for Ibuprofen 600 mg Oral Tablet - take 1 tablet by ORAL route every 6 hours As needed take with food; 30 tablet. Doxycycline Hyclate 100 mg Oral Tablet - take 1 tablet by ORAL route every 12 hours; 20 tablet. - Medication Reconciliation, Local Pharmacy Hours, Referral List Call for Appointment form. - Follow up: Lisa Vega MD; When: 4 - 5 days; Reason: Continuance of care. Follow up: Emergency Department; When: As needed; Reason: Worsening of conditions. - Problem is new. - Symptoms are unchanged. Historical: - Allergies: Morphine (Hives); - Home Meds: 1. Xanax 0.25 mg Oral tab twice a day as needed 2. Prozac Unknown Oral once daily - PMHx: MRSA; Depression; Substance Abuse; - PSHx: right wrist for MRSA; - Social history: Smoking status: Patient uses tobacco products, heavy tobacco smoker. No barriers to communication noted, The patient speaks fluent Hungarian, Speaks appropriately for age. - Family history: Not pertinent. - : The pt / caregiver states he / she is not on anticoagulants. Home medication list is obtained from the patient. - Exposure Risk Screening:: None identified. Vital Signs: 05/18 13:17 BP 131 / 79; Pulse 70; Resp 18; Temp 98.1(O); Pulse Ox 100% on R/A; Weight 66.22 kg / lr2 145.99 lbs (R); Height 6 ft. 1 in. (185.42 cm) (R); Pain 10/10; 15:11 BP 131 / 71; Pulse 78; Resp 16; Temp 97.9(O); Pulse Ox 98% on R/A; Pain 10/10; dem1 13:17 Body Mass Index 19.26 (66.22 kg, 185.42 cm) lr2 MDM: 13:37 Ondansetron 4 mg IVP once ordered. dk1 13:37 ketorolac 30 mg IVP once ordered. dk1 13:37 IV Saline Lock ordered. dk1 13:38 Basic Metabolic Profile Ordered. EDMS 13:38 CBC with Diff Ordered. EDMS 13:38 Urinalysis Ordered. EDMS 13:38 Urine Culture Ordered. EDMS 13:39 US Scrotal Ordered. EDMS 13:39 CT ABD & PELVIS: No Contrast Ordered. EDMS 13:42 DUPLEX SCAN LIMITED (DOPPLER) Ordered. EDMS 14:53 CBC with Diff Reviewed. dk1 14:53 Urinalysis Reviewed. dk1 14:53 CT ABD & PELVIS: No Contrast Reviewed. dk1 14:55 GC & Chlamydia Amplification Ordered. EDMS 15:01 Financial registration complete. mm15 15:06 [facility] Payment Agreement was scanned into [employer] and attached to record. mm15 15:15 Basic Metabolic Profile Reviewed. dk1 15:15 US Scrotal Reviewed. dk1 15:27 Doxycycline 100 mg PO once ordered. dk1 15:31 Drug Eval Toxicology ED Only Ordered. [facility] 05/19 08:52 T-Sheet-- Draft Copy was scanned into [employer] and attached to record. [facility] Administered Medications: 05/18 14:16 Drug: Ondansetron 4 mg [ondansetron HCl 2 mg/mL intravenous solution (2 mL)] Route: rs3 IVP; Site: right hand; 14:16 Drug: ketorolac 30 mg [ketorolac 30 mg/mL (1 mL) injection solution (1 mL)] Route: IVP; rs3 Site: right hand; 15:39 Drug: Doxycycline 100 mg [doxycycline hyclate 100 mg tablet (1 tabs)] Route: PO; rs3 Signatures: Dispatcher [employer] [facility] Bassam Cardozo RN RN mlb1 Reinaldo Smith PA-C PA-C dk1 Kathy Bang RN RN rs3 Nicholas Sarkar 15 Mary Beth Sanchez [facility] The chart was reviewed and I authenticate all verbal orders and agree with the evaluation and treatment provided.Attachments: 15:06 [facility] Payment Agreement [facility] 05/19 08:52 T-Sheet-- Draft Copy [facility] MTDD
--- NOTE | 2016-05-23 10:10 | EDDOCDS ---
Physician Documentation [facility] Name: Chidi Carpenter Age: 31 yrs Sex: Male : 1985 Arrival Date: 05/18/2016 Time: 13:15 Bed I4 / M4 Private MD: No Pcp Disposition: 05/18/16 15:26 Discharged to Home/Self Care. Impression: Epididymitis - Clinically. - Condition is Stable. - Discharge Instructions: Epididymitis. - Prescriptions for Ibuprofen 600 mg Oral Tablet - take 1 tablet by ORAL route every 6 hours As needed take with food; 30 tablet. Doxycycline Hyclate 100 mg Oral Tablet - take 1 tablet by ORAL route every 12 hours; 20 tablet. - Medication Reconciliation, Local Pharmacy Hours, Referral List Call for Appointment form. - Follow up: Lisa Vega MD; When: 4 - 5 days; Reason: Continuance of care. Follow up: Emergency Department; When: As needed; Reason: Worsening of conditions. - Problem is new. - Symptoms are unchanged. Historical: - Allergies: Morphine (Hives); - Home Meds: 1. Xanax 0.25 mg Oral tab twice a day as needed 2. Prozac Unknown Oral once daily - PMHx: MRSA; Depression; Substance Abuse; - PSHx: right wrist for MRSA; - Social history: Smoking status: Patient uses tobacco products, heavy tobacco smoker. No barriers to communication noted, The patient speaks fluent Angolan, Speaks appropriately for age. - Family history: Not pertinent. - : The pt / caregiver states he / she is not on anticoagulants. Home medication list is obtained from the patient. - Exposure Risk Screening:: None identified. Vital Signs: 05/18 13:17 BP 131 / 79; Pulse 70; Resp 18; Temp 98.1(O); Pulse Ox 100% on R/A; Weight 66.22 kg / lr2 145.99 lbs (R); Height 6 ft. 1 in. (185.42 cm) (R); Pain 10/10; 15:11 BP 131 / 71; Pulse 78; Resp 16; Temp 97.9(O); Pulse Ox 98% on R/A; Pain 10/10; dem1 13:17 Body Mass Index 19.26 (66.22 kg, 185.42 cm) lr2 MDM: 13:37 Ondansetron 4 mg IVP once ordered. dk1 13:37 ketorolac 30 mg IVP once ordered. dk1 13:37 IV Saline Lock ordered. dk1 13:38 Basic Metabolic Profile Ordered. EDMS 13:38 CBC with Diff Ordered. EDMS 13:38 Urinalysis Ordered. EDMS 13:38 Urine Culture Ordered. EDMS 13:39 US Scrotal Ordered. EDMS 13:39 CT ABD & PELVIS: No Contrast Ordered. EDMS 13:42 DUPLEX SCAN LIMITED (DOPPLER) Ordered. EDMS 14:53 CBC with Diff Reviewed. dk1 14:53 Urinalysis Reviewed. dk1 14:53 CT ABD & PELVIS: No Contrast Reviewed. dk1 14:55 GC & Chlamydia Amplification Ordered. EDMS 15:01 Financial registration complete. mm15 15:06 [facility] Payment Agreement was scanned into [employer] and attached to record. mm15 15:15 Basic Metabolic Profile Reviewed. dk1 15:15 US Scrotal Reviewed. dk1 15:27 Doxycycline 100 mg PO once ordered. dk1 15:31 Drug Eval Toxicology ED Only Ordered. EDAK 05/19 08:52 T-Sheet-- Draft Copy was scanned into [employer] and attached to record. [facility] Administered Medications: 05/18 14:16 Drug: Ondansetron 4 mg [ondansetron HCl 2 mg/mL intravenous solution (2 mL)] Route: rs3 IVP; Site: right hand; 14:16 Drug: ketorolac 30 mg [ketorolac 30 mg/mL (1 mL) injection solution (1 mL)] Route: IVP; rs3 Site: right hand; 15:39 Drug: Doxycycline 100 mg [doxycycline hyclate 100 mg tablet (1 tabs)] Route: PO; rs3 Signatures: Dispatcher MedHost [facility] Bassam Cadrozo RN RN mlb1 Reinaldo Smith PA-C PA-C dk1 Kathy Bang RN RN rs3 Nicholas Sarkar 15 Mary Beth Sanchez [facility] The chart was reviewed and I authenticate all verbal orders and agree with the evaluation and treatment provided.Attachments: 15:06 [facility] Payment Agreement [facility] 05/19 08:52 T-Sheet-- Draft Copy [facility] MTDD
--- NOTE | 2016-05-23 10:11 | EDDOCDS ---
Physician Documentation [facility] Name: Chidi Carpenter Age: 31 yrs Sex: Male : 1985 Arrival Date: 05/18/2016 Time: 13:15 Bed I4 / M4 Private MD: No Pcp Disposition: 05/18/16 15:26 Discharged to Home/Self Care. Impression: Epididymitis - Clinically. - Condition is Stable. - Discharge Instructions: Epididymitis. - Prescriptions for Ibuprofen 600 mg Oral Tablet - take 1 tablet by ORAL route every 6 hours As needed take with food; 30 tablet. Doxycycline Hyclate 100 mg Oral Tablet - take 1 tablet by ORAL route every 12 hours; 20 tablet. - Medication Reconciliation, Local Pharmacy Hours, Referral List Call for Appointment form. - Follow up: Lisa Vega MD; When: 4 - 5 days; Reason: Continuance of care. Follow up: Emergency Department; When: As needed; Reason: Worsening of conditions. - Problem is new. - Symptoms are unchanged. Historical: - Allergies: Morphine (Hives); - Home Meds: 1. Xanax 0.25 mg Oral tab twice a day as needed 2. Prozac Unknown Oral once daily - PMHx: MRSA; Depression; Substance Abuse; - PSHx: right wrist for MRSA; - Social history: Smoking status: Patient uses tobacco products, heavy tobacco smoker. No barriers to communication noted, The patient speaks fluent Andorran, Speaks appropriately for age. - Family history: Not pertinent. - : The pt / caregiver states he / she is not on anticoagulants. Home medication list is obtained from the patient. - Exposure Risk Screening:: None identified. Vital Signs: 05/18 13:17 BP 131 / 79; Pulse 70; Resp 18; Temp 98.1(O); Pulse Ox 100% on R/A; Weight 66.22 kg / lr2 145.99 lbs (R); Height 6 ft. 1 in. (185.42 cm) (R); Pain 10/10; 15:11 BP 131 / 71; Pulse 78; Resp 16; Temp 97.9(O); Pulse Ox 98% on R/A; Pain 10/10; dem1 13:17 Body Mass Index 19.26 (66.22 kg, 185.42 cm) lr2 MDM: 13:37 Ondansetron 4 mg IVP once ordered. dk1 13:37 ketorolac 30 mg IVP once ordered. dk1 13:37 IV Saline Lock ordered. dk1 13:38 Basic Metabolic Profile Ordered. EDMS 13:38 CBC with Diff Ordered. EDMS 13:38 Urinalysis Ordered. EDMS 13:38 Urine Culture Ordered. EDMS 13:39 US Scrotal Ordered. EDMS 13:39 CT ABD & PELVIS: No Contrast Ordered. EDMS 13:42 DUPLEX SCAN LIMITED (DOPPLER) Ordered. EDMS 14:53 CBC with Diff Reviewed. dk1 14:53 Urinalysis Reviewed. dk1 14:53 CT ABD & PELVIS: No Contrast Reviewed. dk1 14:55 GC & Chlamydia Amplification Ordered. EDMS 15:01 Financial registration complete. mm15 15:06 [facility] Payment Agreement was scanned into [employer] and attached to record. mm15 15:15 Basic Metabolic Profile Reviewed. dk1 15:15 US Scrotal Reviewed. dk1 15:27 Doxycycline 100 mg PO once ordered. dk1 15:31 Drug Eval Toxicology ED Only Ordered. EDND 05/19 08:52 T-Sheet-- Draft Copy was scanned into [employer] and attached to record. [facility] Administered Medications: 05/18 14:16 Drug: Ondansetron 4 mg [ondansetron HCl 2 mg/mL intravenous solution (2 mL)] Route: rs3 IVP; Site: right hand; 14:16 Drug: ketorolac 30 mg [ketorolac 30 mg/mL (1 mL) injection solution (1 mL)] Route: IVP; rs3 Site: right hand; 15:39 Drug: Doxycycline 100 mg [doxycycline hyclate 100 mg tablet (1 tabs)] Route: PO; rs3 Signatures: Dispatcher [employer] [facility] Bassam Cardozo RN RN mlb1 Reinaldo Smith PA-C PA-C dk1 Kathy Bang RN RN rs3 Nicholas Sarkar 15 Mary Beth Sanchez [facility] The chart was reviewed and I authenticate all verbal orders and agree with the evaluation and treatment provided.Attachments: 15:06 [facility] Payment Agreement [facility] 05/19 08:52 T-Sheet-- Draft Copy [facility] Chart Complete MTDD
--- NOTE | 2016-05-23 10:11 | EDDOCDS ---
Nurse's Notes [facility] Name: Chidi Carpenter Age: 31 yrs Sex: Male : 1985 Arrival Date: 05/18/2016 Time: 13:15 Bed I4 / M4 Private MD: No Pcp Diagnosis: Epididymitis-Clinically Presentation: 05/18 13:19 Presenting complaint: Patient states: Testicular pain began a month ago hematuria since mlb1 last night. Adult Sepsis Screening: The patient does not have new or worsening altered mentation. Patient's respiratory rate is less than 22. Systolic blood pressure is greater than 100. Patient has a qSOFA score of 0- Negative Sepsis Screen. Suicide/Homicide risk assessment- the patient denies having any suicidal and/or homicidal ideations and does not present with any other emotional, behavioral or mental health complaints. Status: Patient is not a office machine servicer or dependent. Transition of care: patient was not received from another setting of care. 13:19 Acuity: MAITE Level 3 mlb1 13:19 Method Of Arrival: Walkin/Carried/Asstd mlb1 Triage Assessment: 13:23 General: Appears in no apparent distress, Behavior is appropriate for age, cooperative. mlb1 Pain: Location: left testicle and right testicle Pain currently is 10 out of 10 on a pain scale. HIV screening NA for this visit Offered previously. Historical: - Allergies: Morphine (Hives); - Home Meds: 1. Xanax 0.25 mg Oral tab twice a day as needed 2. Prozac Unknown Oral once daily - PMHx: MRSA; Depression; Substance Abuse; - PSHx: right wrist for MRSA; - Social history: Smoking status: Patient uses tobacco products, heavy tobacco smoker. No barriers to communication noted, The patient speaks fluent [place]ine[place], Speaks appropriately for age. - Family history: Not pertinent. - : The pt / caregiver states he / she is not on anticoagulants. Home medication list is obtained from the patient. - Exposure Risk Screening:: None identified. Screenin:42 Screening information is obtained from the patient. Fall risk: No risks identified. rs3 Assistance ADL's: requires no assistance with activities of daily living. Abuse/DV Screen: The patient / caregiver reports he/she is: not in a situation that causes fear, pain or injury. Nutritional screening: No deficits noted. Advance Directives: Currently, there is no health care proxy. home support is adequate. Assessment: 14:17 General: Appears in no apparent distress, Behavior is appropriate for age, cooperative. rs3 Pain: Location: right testicle and left testicle. Respiratory: Airway is patent Respiratory effort is even, unlabored. Derm: Skin is pink, warm & dry. 15:44 Reassessment: Patient appears in no apparent distress at this time. Patient denies pain rs3 at this time. Patient states feeling better. Patient states symptoms have improved. Vital Signs: 13:17 BP 131 / 79; Pulse 70; Resp 18; Temp 98.1(O); Pulse Ox 100% on R/A; Weight 66.22 kg lr2 (R); Height 6 ft. 1 in. (185.42 cm) (R); Pain 10/10; 15:11 BP 131 / 71; Pulse 78; Resp 16; Temp 97.9(O); Pulse Ox 98% on R/A; Pain 10/10; dem1 13:17 Body Mass Index 19.26 (66.22 kg, 185.42 cm) lr2 Vitals: 13:17 Log In Time: May 18, 2016 at 13:15. lr2 ED Course: 13:16 Patient visited by Angelika Mena. lr2 13:16 Patient moved to Waiting lr2 13:18 No Pcp is Private Physician. lr2 13:18 Patient moved to Pre RCE lr2 13:19 Patient visited by Bassam Cardozo, RN. mlb1 13:20 Triage Initiated mlb1 13:23 Patient visited by Bassam Cardozo, RN. mlb1 13:23 Patient moved to Triage 2 mlb1 13:29 eRinaldo Smith PA-C is PHCP. dk1 13:29 Sal Holley MD is Attending Physician. dk1 13:29 Patient visited by Reinaldo Smith PA-C. dk1 13:41 Patient moved to I4 / M4 ms18 13:[address] dem1 14:04 Patient moved to Ultrasound am10 14:04 Patient moved to I4 / M4 am10 14:17 CBC with Diff Sent. rs3 14:17 Basic Metabolic Profile Sent. rs3 14:17 Inserted saline lock: 20 gauge in right hand. No procedures done that require rs3 assistance. 14:24 Patient visited by Kathy Bang RN. rs3 14:27 CT ABD & PELVIS: No Contrast Returned. EDMS 15:06 [facility] Payment Agreement was scanned into [employer] and attached to record. mm15 15:07 US Scrotal Returned. EDMS 15:12 Patient visited by William Talley. dem1 15:14 GC & Chlamydia Amplification Sent. dem1 15:26 Lisa Vega MD is Referral Physician. dk1 15:44 Patient visited by William Talley. dem1 15:44 The patient / caregiver is instructed regarding the plan of care and ED course. rs3 15:44 Drug Eval Toxicology ED Only Sent. dem1 05/19 08:52 T-Sheet-- Draft Copy was scanned into [employer] and attached to record. [facility] Administered Medications: 05/18 14:16 Drug: Ondansetron 4 mg [ondansetron HCl 2 mg/mL intravenous solution (2 mL)] Route: rs3 IVP; Site: right hand; 14:16 Drug: ketorolac 30 mg [ketorolac 30 mg/mL (1 mL) injection solution (1 mL)] Route: IVP; rs3 Site: right hand; 15:39 Drug: Doxycycline 100 mg [doxycycline hyclate 100 mg tablet (1 tabs)] Route: PO; rs3 Order Results: Lab Order: Basic Metabolic Profile; SPEC'M 05/18/16 14:10 Test: GLUCOSE, FASTING; Value: 111; Range: 70-105; Abnormal: Above high normal; Units: MG/DL; Status: F Test: BLOOD UREA NITROGEN; Value: 11; Range: 7-18; Units: MG/DL; Status: F Test: CREATININE FOR GFR; Value: 0.96; Range: 0.70-1.30; Units: MG/DL; Status: F Test: GLOMERULAR FILTRATION RATE; Value: > 60.0; Range: >60; Status: F Test: SODIUM LEVEL; Value: 142; Range: 136-145; Units: MEQ/L; Status: F Test: POTASSIUM SERUM; Value: 3.9; Range: 3.5-5.1; Units: MEQ/L; Status: F Test: CHLORIDE LEVEL; Value: 107; Range: 98-107; Units: MEQ/L; Status: F Test: CARBON DIOXIDE LEVEL; Value: 24; Range: 21-32; Units: MEQ/L; Status: F Test: ANION GAP; Value: 11; Range: 8-16; Units: MEQ/L; Status: F Test: CALCIUM LEVEL; Value: 8.4; Range: 8.5-10.1; Abnormal: Below low normal; Units: MG/DL; Status: F Test Note: ; Units are mL/min/1.73 m2 Chronic Kidney Disease Staging per NKF: Stage I & II GFR >=60 Normal to Mildly Decreased Stage III GFR 30-59 Moderately Decreased Stage IV GFR 15-29 Severely Decreased Stage V GFR <15 Very Little GFR Left ESRD GFR <15 on DATA ENGINEER Lab Order: CBC with Diff; SPEC'M 05/18/16 14:10 Test: WHITE BLOOD COUNT; Value: 7.5; Range: 4.0-10.0; Units: K/mm3; Status: F Test: RED BLOOD COUNT; Value: 5.46; Range: 4.30-6.10; Units: M/mm3; Status: F Test: HEMOGLOBIN; Value: 15.8; Range: 14.0-18.0; Units: g/dl; Status: F Test: HEMATOCRIT; Value: 47.9; Range: 42.0-52.0; Units: %; Status: F Test: MEAN CORPUSCULAR VOLUME; Value: 87.8; Range: 80.0-96.0; Units: fl; Status: F Test: MEAN CORPUSCULAR HEMOGLOBIN; Value: 28.9; Range: 27.0-33.0; Units: pg; Status: F Test: MEAN CORPUSCULAR HGB CONC; Value: 32.9; Range: 32.0-36.5; Units: g/dl; Status: F Test: RED CELL DISTRIBUTION WIDTH; Value: 12.5; Range: 11.5-14.5; Units: %; Status: F Test: PLATELET COUNT, AUTOMATED; Value: 351; Range: 150-450; Units: k/mm3; Status: F Test: NEUTROPHILS %; Value: 65.0; Range: 36.0-66.0; Units: %; Status: F Test: LYMPH %; Value: 20.7; Range: 24.0-44.0; Abnormal: Below low normal; Units: %; Status: F Test: MONO %; Value: 6.8; Range: 0.0-5.0; Abnormal: Above high normal; Units: %; Status: F Test: EOS %; Value: 3.9; Range: 0.0-3.0; Abnormal: Above high normal; Units: %; Status: F Test: BASO %; Value: 0.5; Range: 0.0-1.0; Units: %; Status: F Test: LARGE UNSTAINED CELL %; Value: 3.0; Range: 0.0-4.0; Units: %; Status: F Test: NEUTROPHILS #; Value: 4.9; Range: 1.8-7.7; Units: K/mm3; Status: F Test: LYMPH #; Value: 1.8; Range: 1.5-4.5; Units: K/mm3; Status: F Test: MONO #; Value: 0.5; Range: 0.0-0.8; Units: K/mm3; Status: F Test: EOS #; Value: 0.3; Range: 0.0-0.50; Units: K/mm3; Status: F Test: BASO #; Value: 0.0; Range: 0.0-0.2; Units: K/mm3; Status: F Test: LARGE UNSTAINED CELL #; Value: 0.2; Range: 0.0-0.4; Units: K/mm3; Status: F Lab Order: Urinalysis; SPEC'M 05/18/16 13:45 Test: APPEARANCE, URINE; Value: CLEAR; Range: CLEAR; Status: F Test: COLOR, URINE; Value: ELIZABETH; Range: YELLOW; Status: F Test: PH,URINE; Value: 6.0; Range: 5.0-9.0; Units: UNITS; Status: F Test: SPECIFIC GRAVITY URINE AUTO; Value: 1.038; Range: 1.002-1.035; Status: F Test: PROTEIN, URINE AUTO; Value: 1+; Range: NEGATIVE; Abnormal: Above high normal; Units: mg/dL; Status: F Test: GLUCOSE, URINE (UA) AUTO; Value: NEGATIVE; Range: NEGATIVE; Units: mg/dL; Status: F Test: KETONE, URINE AUTO; Value: TRACE; Range: NEGATIVE; Abnormal: Above high normal; Units: mg/dL; Status: F Test: UROBILINOGEN, URINE AUTO; Value: 4.0; Range: 0.0-2.0; Abnormal: Above high normal; Units: mg/dL; Status: F Test: BILIRUBIN, URINE AUTO; Value: NEGATIVE; Range: NEGATIVE; Status: F Test: NITRITE, URINE AUTO; Value: NEGATIVE; Range: NEGATIVE; Status: F Test: LEUKOCYTE ESTERASE, URINE AUTO; Value: NEGATIVE; Range: NEGATIVE; Status: F Test: BLOOD, URINE BLOOD; Value: NEGATIVE; Range: NEGATIVE; Status: F Test: WBC, URINE AUTO; Value: 0; Range: 0-3; Units: /HPF; Status: F Test: RBC, URINE AUTO; Value: 2; Range: 0-3; Units: /HPF; Status: F Test: BACTERIA, URINE AUTO; Value: NEGATIVE; Range: NEGATIVE; Status: F Test: SQUAMOUS EPITHELIAL CELL UR AU; Value: 1; Range: 0-6; Units: /HPF; Status: F Test: MUCUS, URINE; Value: SMALL; Range: NEGATIVE; Status: F Test: HYALINE CAST, URINE AUTO; Value: 0; Range: 0-1; Units: /LPF; Status: F Lab Order: Urine Culture; SPEC'M 05/18/16 13:45 Test: URINE CULTURE; Value: <EXTERNAL COMMENT eCWMed> FULL REPORT IN LAB NOTES (eCW and Medent).; Status: F Test: URINE CULTURE; Value: ORGANISM 1: STREP AGALACTIAE GROUP B; Status: F Test: URINE CULTURE; Value: STREP AGALACTIAE GROUP B; Status: F Test: URINE CULTURE; Value: COLONY COUNT CFU/ml 20,000; Status: F Test: URINE CULTURE; Value: GRAM POS SENSI - ST02; Status: F Test: URINE CULTURE; Value: Method: VIT2; Status: F Test: URINE CULTURE; Value: ICR (INDUCIBLE CC RESISTANCE) -; Status: F Test: URINE CULTURE; Value: TETRACYCLINE >=16 R; Status: F Test: URINE CULTURE; Value: PENICILLIN G <=0.06 S; Status: F Test: URINE CULTURE; Value: TRIMETHOPRIM/SULFAMETHOXAZOLE <=10 S; Status: F Test: URINE CULTURE; Value: AMPICILLIN <=0.25 S; Status: F Test: URINE CULTURE; Value: ERYTHROMYCIN >=8 R; Status: F Test: URINE CULTURE; Value: LEVOFLOXACIN 1 S; Status: F Test: URINE CULTURE; Value: VANCOMYCIN 0.5 S; Status: F Test: URINE CULTURE; Value: MOXIFLOXACIN (AVELOX) 0.12 S; Status: F Test: URINE CULTURE; Value: CEFTRIAXONE <=0.12 S; Status: F Test: URINE CULTURE; Value: CEFOTAXIME <=0.12 S; Status: F Lab Order: GC & Chlamydia Amplification; SPEC'M 05/18/16 15:14 Test: CHLAMYDIA DNA AMPLIFICATION; Value: NEGATIVE; Range: NEGATIVE; Status: F Test: GC DNA AMPLIFICATION; Value: NEGATIVE; Range: NEGATIVE; Status: F Lab Order: Drug Eval Toxicology ED Only; SPEC'M 05/18/16 15:14 Test: AMPHETAMINES LEVEL URINE; Value: POSITIVE; Range: NEGATIVE; Abnormal: Above high normal; Status: F Test: BARBITURATES URINE; Value: POSITIVE; Range: NEGATIVE; Abnormal: Above high normal; Status: F Test: BENZODIAZEPINES URINE; Value: POSITIVE; Range: NEGATIVE; Abnormal: Above high normal; Status: F Test: CANNABINOIDS URINE; Value: POSITIVE; Range: NEGATIVE; Abnormal: Above high normal; Status: F Test: COCAINE METABOLITE URINE; Value: POSITIVE; Range: NEGATIVE; Abnormal: Above high normal; Status: F Test: METHADONE URINE; Value: NEGATIVE; Range: NEGATIVE; Status: F Test: OPIATES URINE; Value: POSITIVE; Range: NEGATIVE; Abnormal: Above high normal; Status: F Test: TRICYCLIC ANTIDEPRESS URINE; Value: NEGATIVE; Range: NEGATIVE; Status: F Test Note: ; FALSE POSITIVE RESULTS CAN BE CAUSED BY THE USE OF PANTOPRAZOLE (PROTONIX). Radiology Order: CT ABD & PELVIS: No Contrast Test: CT ABD & PELVIS: No Contrast REASON FOR EXAMINATION: Renal colic; Clinical: Renal colic.; ; Findings:; Lung bases clear.; ; Liver, spleen, pancreas, gallbladder, bilateral adrenal glands and kidneys are; normal. The enteric system is without obstruction or acute inflammatory process.; Normal appendix identified in the right lower quadrant. Pelvis demonstrates; normal bladder and age appropriate prostate/seminal vesicles. No ascites. No; free air. Musculoskeletal structures intact.; ; Impression:; Normal noncontrast CT of the abdomen and pelvis.; No acute abdominopelvic pathology appreciated.; ; ; Signed by; Adal Giordano MD 05/18/2016 01:55 P; Radiology Order: US Scrotal Test: US Scrotal REASON FOR EXAMINATION: testicular pain; Clinical: Testicular pain.; ; Technique: Christina scale and color Doppler evaluation using linear and curved array; transducer with color Doppler evaluation.; ; Findings:; The testicles and epididymi are relatively normal in contour, size, echogenicity,; vascularity and overall appearance/contour. There is no evidence for; intratesticular mass lesion, infectious/inflammatory process, with torsion. No; obvious hydroceles or varicoceles are identified.; ; Right testicle measures 5.3 x 2.2 x 3.6 cm.; Left testicle measures 5.1 x 2.2 x 3.3 cm.; ; Impression:; Essentially normal scrotal ultrasound.; No significant pathology appreciated.; No evidence for torsion or infectious process.; ; ; Signed by; Adal Giordano MD 05/18/2016 02:18 P; Outcome: 15:26 Discharge ordered by Provider. dk1 15:42 Discharge Assessment: patient administered narcotics - no. The following High Risk rs3 Discharge criteria are identified: None. Discharged to home with family. Condition: stable. Discharge instructions given to patient, Instructed on discharge instructions, follow up and referral plans. medication usage, Demonstrated understanding of instructions, medications, Pt was receptive of discharge instructions/ teaching. Prescriptions given X 2. Ultrasound Study completed. Property :Personal belongings accompany Pt. 15:44 Patient left the ED. rs3 Addendum: 05/23/2016 10:08 Narrative: Urine culture results reviewed with Dr. Aguillon and no change in treatment kcs needed. Report to be faxed to Dr. Vega. Signatures: Dispatcher [employer] EDAzul Saleh RN RN kcs Bassam Cardozo RN RN mlb1 Reinaldo Smith, PA-C PA-C rakesh1 Zoila Bravo am10 Kathy Bang RN RN rs3 William Talley1 Nicholas Sarkar mm15 Cami Kendall RN RN ms18 Mary Beth Sanchez Laura lr2 Chart Complete MTDD
--- NOTE | 2016-05-23 10:12 | EDDOCDS ---
Physician Documentation [facility] Name: Chidi Carpenter Age: 31 yrs Sex: Male : 1985 Arrival Date: 05/18/2016 Time: 13:15 Bed I4 / M4 Private MD: No Pcp Disposition: 05/18/16 15:26 Discharged to Home/Self Care. Impression: Epididymitis - Clinically. - Condition is Stable. - Discharge Instructions: Epididymitis. - Prescriptions for Ibuprofen 600 mg Oral Tablet - take 1 tablet by ORAL route every 6 hours As needed take with food; 30 tablet. Doxycycline Hyclate 100 mg Oral Tablet - take 1 tablet by ORAL route every 12 hours; 20 tablet. - Medication Reconciliation, Local Pharmacy Hours, Referral List Call for Appointment form. - Follow up: Lisa Vega MD; When: 4 - 5 days; Reason: Continuance of care. Follow up: Emergency Department; When: As needed; Reason: Worsening of conditions. - Problem is new. - Symptoms are unchanged. Historical: - Allergies: Morphine (Hives); - Home Meds: 1. Xanax 0.25 mg Oral tab twice a day as needed 2. Prozac Unknown Oral once daily - PMHx: MRSA; Depression; Substance Abuse; - PSHx: right wrist for MRSA; - Social history: Smoking status: Patient uses tobacco products, heavy tobacco smoker. No barriers to communication noted, The patient speaks fluent Latvian, Speaks appropriately for age. - Family history: Not pertinent. - : The pt / caregiver states he / she is not on anticoagulants. Home medication list is obtained from the patient. - Exposure Risk Screening:: None identified. Vital Signs: 05/18 13:17 BP 131 / 79; Pulse 70; Resp 18; Temp 98.1(O); Pulse Ox 100% on R/A; Weight 66.22 kg / lr2 145.99 lbs (R); Height 6 ft. 1 in. (185.42 cm) (R); Pain 10/10; 15:11 BP 131 / 71; Pulse 78; Resp 16; Temp 97.9(O); Pulse Ox 98% on R/A; Pain 10/10; dem1 13:17 Body Mass Index 19.26 (66.22 kg, 185.42 cm) lr2 MDM: 13:37 Ondansetron 4 mg IVP once ordered. dk1 13:37 ketorolac 30 mg IVP once ordered. dk1 13:37 IV Saline Lock ordered. dk1 13:38 Basic Metabolic Profile Ordered. EDMS 13:38 CBC with Diff Ordered. EDMS 13:38 Urinalysis Ordered. EDMS 13:38 Urine Culture Ordered. EDMS 13:39 US Scrotal Ordered. EDMS 13:39 CT ABD & PELVIS: No Contrast Ordered. EDMS 13:42 DUPLEX SCAN LIMITED (DOPPLER) Ordered. EDMS 14:53 CBC with Diff Reviewed. dk1 14:53 Urinalysis Reviewed. dk1 14:53 CT ABD & PELVIS: No Contrast Reviewed. dk1 14:55 GC & Chlamydia Amplification Ordered. EDMS 15:01 Financial registration complete. mm15 15:06 [facility] Payment Agreement was scanned into [employer] and attached to record. mm15 15:15 Basic Metabolic Profile Reviewed. dk1 15:15 US Scrotal Reviewed. dk1 15:27 Doxycycline 100 mg PO once ordered. dk1 15:31 Drug Eval Toxicology ED Only Ordered. EDVT 05/19 08:52 T-Sheet-- Draft Copy was scanned into [employer] and attached to record. [facility] Administered Medications: 05/18 14:16 Drug: Ondansetron 4 mg [ondansetron HCl 2 mg/mL intravenous solution (2 mL)] Route: rs3 IVP; Site: right hand; 14:16 Drug: ketorolac 30 mg [ketorolac 30 mg/mL (1 mL) injection solution (1 mL)] Route: IVP; rs3 Site: right hand; 15:39 Drug: Doxycycline 100 mg [doxycycline hyclate 100 mg tablet (1 tabs)] Route: PO; rs3 Signatures: Dispatcher [employer] [facility] Bassam Cardozo RN RN mlb1 Reinaldo Smith PA-C PA-C dk1 Kathy Bang RN RN rs3 Nicholas Sarkar [address] Sanchez [facility] The chart was reviewed and I authenticate all verbal orders and agree with the evaluation and treatment provided.Attachments: 15:06 [facility] Payment Agreement [facility] 05/19 08:52 T-Sheet-- Draft Copy [facility] Chart Complete MTDD
--- NOTE | 2016-05-23 10:35 | EDDOCDS ---
Physician Documentation [facility] Name: Chidi Carpenter Age: 31 yrs Sex: Male : 1985 Arrival Date: 05/18/2016 Time: 13:15 Bed I4 / M4 Private MD: No Pcp Disposition: 05/18/16 15:26 Discharged to Home/Self Care. Impression: Epididymitis - Clinically. - Condition is Stable. - Discharge Instructions: Epididymitis. - Prescriptions for Ibuprofen 600 mg Oral Tablet - take 1 tablet by ORAL route every 6 hours As needed take with food; 30 tablet. Doxycycline Hyclate 100 mg Oral Tablet - take 1 tablet by ORAL route every 12 hours; 20 tablet. - Medication Reconciliation, Local Pharmacy Hours, Referral List Call for Appointment form. - Follow up: Lisa Vega MD; When: 4 - 5 days; Reason: Continuance of care. Follow up: Emergency Department; When: As needed; Reason: Worsening of conditions. - Problem is new. - Symptoms are unchanged. Historical: - Allergies: Morphine (Hives); - Home Meds: 1. Xanax 0.25 mg Oral tab twice a day as needed 2. Prozac Unknown Oral once daily - PMHx: MRSA; Depression; Substance Abuse; - PSHx: right wrist for MRSA; - Social history: Smoking status: Patient uses tobacco products, heavy tobacco smoker. No barriers to communication noted, The patient speaks fluent [place], Speaks appropriately for age. - Family history: Not pertinent. - : The pt / caregiver states he / she is not on anticoagulants. Home medication list is obtained from the patient. - Exposure Risk Screening:: None identified. Vital Signs: 05/18 13:17 BP 131 / 79; Pulse 70; Resp 18; Temp 98.1(O); Pulse Ox 100% on R/A; Weight 66.22 kg / lr2 145.99 lbs (R); Height 6 ft. 1 in. (185.42 cm) (R); Pain 10/10; 15:11 BP 131 / 71; Pulse 78; Resp 16; Temp 97.9(O); Pulse Ox 98% on R/A; Pain 10/10; dem1 13:17 Body Mass Index 19.26 (66.22 kg, 185.42 cm) lr2 MDM: 13:37 Ondansetron 4 mg IVP once ordered. dk1 13:37 ketorolac 30 mg IVP once ordered. dk1 13:37 IV Saline Lock ordered. dk1 13:38 Basic Metabolic Profile Ordered. EDMS 13:38 CBC with Diff Ordered. EDMS 13:38 Urinalysis Ordered. EDMS 13:38 Urine Culture Ordered. EDMS 13:39 US Scrotal Ordered. EDMS 13:39 CT ABD & PELVIS: No Contrast Ordered. EDMS 13:42 DUPLEX SCAN LIMITED (DOPPLER) Ordered. EDMS 14:53 CBC with Diff Reviewed. dk1 14:53 Urinalysis Reviewed. dk1 14:53 CT ABD & PELVIS: No Contrast Reviewed. dk1 14:55 GC & Chlamydia Amplification Ordered. EDMS 15:01 Financial registration complete. mm15 15:06 [facility] Payment Agreement was scanned into [employer] and attached to record. mm15 15:15 Basic Metabolic Profile Reviewed. dk1 15:15 US Scrotal Reviewed. dk1 15:27 Doxycycline 100 mg PO once ordered. dk1 15:31 Drug Eval Toxicology ED Only Ordered. EDDC 05/19 08:52 T-Sheet-- Draft Copy was scanned into [employer] and attached to record. [facility] Administered Medications: 05/18 14:16 Drug: Ondansetron 4 mg [ondansetron HCl 2 mg/mL intravenous solution (2 mL)] Route: rs3 IVP; Site: right hand; 14:16 Drug: ketorolac 30 mg [ketorolac 30 mg/mL (1 mL) injection solution (1 mL)] Route: IVP; rs3 Site: right hand; 15:39 Drug: Doxycycline 100 mg [doxycycline hyclate 100 mg tablet (1 tabs)] Route: PO; rs3 Signatures: Dispatcher [employer] [facility] Bassam Cardozo RN RN mlb1 Reinaldo Smith PA-C PA-C dk1 Kathy Bang RN RN rs3 Nicholas Sarkar [address] Beth Sanchez [facility] The chart was reviewed and I authenticate all verbal orders and agree with the evaluation and treatment provided.Attachments: 15:06 [facility] Payment Agreement [facility] 05/19 08:52 T-Sheet-- Draft Copy [facility] Chart Complete MTDD
--- NOTE | 2016-05-23 10:35 | EDDOCDS ---
Physician Documentation [facility] Name: Chidi Carpenter Age: 31 yrs Sex: Male : 1985 Arrival Date: 05/18/2016 Time: 13:15 Bed I4 / M4 Private MD: No Pcp Disposition: 05/18/16 15:26 Discharged to Home/Self Care. Impression: Epididymitis - Clinically. - Condition is Stable. - Discharge Instructions: Epididymitis. - Prescriptions for Ibuprofen 600 mg Oral Tablet - take 1 tablet by ORAL route every 6 hours As needed take with food; 30 tablet. Doxycycline Hyclate 100 mg Oral Tablet - take 1 tablet by ORAL route every 12 hours; 20 tablet. - Medication Reconciliation, Local Pharmacy Hours, Referral List Call for Appointment form. - Follow up: Lisa Vega MD; When: 4 - 5 days; Reason: Continuance of care. Follow up: Emergency Department; When: As needed; Reason: Worsening of conditions. - Problem is new. - Symptoms are unchanged. Historical: - Allergies: Morphine (Hives); - Home Meds: 1. Xanax 0.25 mg Oral tab twice a day as needed 2. Prozac Unknown Oral once daily - PMHx: MRSA; Depression; Substance Abuse; - PSHx: right wrist for MRSA; - Social history: Smoking status: Patient uses tobacco products, heavy tobacco smoker. No barriers to communication noted, The patient speaks fluent [place], Speaks appropriately for age. - Family history: Not pertinent. - : The pt / caregiver states he / she is not on anticoagulants. Home medication list is obtained from the patient. - Exposure Risk Screening:: None identified. Vital Signs: 05/18 13:17 BP 131 / 79; Pulse 70; Resp 18; Temp 98.1(O); Pulse Ox 100% on R/A; Weight 66.22 kg / lr2 145.99 lbs (R); Height 6 ft. 1 in. (185.42 cm) (R); Pain 10/10; 15:11 BP 131 / 71; Pulse 78; Resp 16; Temp 97.9(O); Pulse Ox 98% on R/A; Pain 10/10; dem1 13:17 Body Mass Index 19.26 (66.22 kg, 185.42 cm) lr2 MDM: 13:37 Ondansetron 4 mg IVP once ordered. dk1 13:37 ketorolac 30 mg IVP once ordered. dk1 13:37 IV Saline Lock ordered. dk1 13:38 Basic Metabolic Profile Ordered. EDMS 13:38 CBC with Diff Ordered. EDMS 13:38 Urinalysis Ordered. EDMS 13:38 Urine Culture Ordered. EDMS 13:39 US Scrotal Ordered. EDMS 13:39 CT ABD & PELVIS: No Contrast Ordered. EDMS 13:42 DUPLEX SCAN LIMITED (DOPPLER) Ordered. EDMS 14:53 CBC with Diff Reviewed. dk1 14:53 Urinalysis Reviewed. dk1 14:53 CT ABD & PELVIS: No Contrast Reviewed. dk1 14:55 GC & Chlamydia Amplification Ordered. EDMS 15:01 Financial registration complete. mm15 15:06 [facility] Payment Agreement was scanned into [employer] and attached to record. mm15 15:15 Basic Metabolic Profile Reviewed. dk1 15:15 US Scrotal Reviewed. dk1 15:27 Doxycycline 100 mg PO once ordered. dk1 15:31 Drug Eval Toxicology ED Only Ordered. EDSC 05/19 08:52 T-Sheet-- Draft Copy was scanned into [employer] and attached to record. [facility] Administered Medications: 05/18 14:16 Drug: Ondansetron 4 mg [ondansetron HCl 2 mg/mL intravenous solution (2 mL)] Route: rs3 IVP; Site: right hand; 14:16 Drug: ketorolac 30 mg [ketorolac 30 mg/mL (1 mL) injection solution (1 mL)] Route: IVP; rs3 Site: right hand; 15:39 Drug: Doxycycline 100 mg [doxycycline hyclate 100 mg tablet (1 tabs)] Route: PO; rs3 Signatures: Dispatcher [employer] [facility] Bassam Cardozo RN RN mlb1 Reinaldo Smith PA-C PA-C dk1 Kathy Bang RN RN rs3 Nicholas Sarkar [address] Beth Sanchez [facility] The chart was reviewed and I authenticate all verbal orders and agree with the evaluation and treatment provided.Attachments: 15:06 [facility] Payment Agreement [facility] 05/19 08:52 T-Sheet-- Draft Copy [facility] Chart Complete MTDD
== END 2016-05-18 15:44 | disposition home or self-care (01) ==
LOC: M ED 13:15
DX: N45.1 Epididymitis (principal); Z86.14 Personal history of Methicillin resistant Staphylococcus aureus infection; F32.9 Major depressive disorder, single episode, unspecified; F19.10 Other psychoactive substance abuse, uncomplicated; Z72.0 Tobacco use; Z79.899 Other long term (current) drug therapy; Z88.5 Allergy status to narcotic agent
CPT/HCPCS: 74176; 76870; 80048; 80306; 81001; 85025; 87088; 87186; 87491; 87591; 93976; 96374; 96375; 99284; J1885; J2405

== ENCOUNTER 2016-09-21 23:48 | Emergency (ER) | payer MEDICAID, SELFPAY ==
[~2016-09-21] VITALS: Ht 188 cm; Wt 70.5 kg
[~2016-09-21 23:48] MED LIST changes: -AUGM875T27 PO; +AUGM875T28 PO
[2016-09-22] MEDS ORDERED: IBUPROFEN 800 MG TAB PO ONE (01:30)
[2016-09-22 04:20] LABS: BASO # 0.1 K/mm3 (0.0-0.2); BASO % 2.1 % (0.0-1.0); EOS # 0.5 K/mm3 (0.0-0.50); EOS % 7.1 % (0.0-3.0); LARGE UNSTAINED CELL # 0.3 K/mm3 (0.0-0.4); LARGE UNSTAINED CELL % 3.9 % (0.0-4.0); LYMPH # 2.6 K/mm3 (1.5-4.5); MEAN CORPUSCULAR HEMOGLOBIN 30.2 pg (27.0-33.0); MEAN CORPUSCULAR HGB CONC 34.1 g/dl (32.0-36.5); MEAN CORPUSCULAR VOLUME 88.7 fl (80.0-96.0); MONO # 0.7 K/mm3 (0.0-0.8); MONO % 9.4 % (0.0-5.0); NEUTROPHILS # 3.1 K/mm3 (1.8-7.7); NEUTROPHILS % 44.6 % (36.0-66.0); PLATELET COUNT, AUTOMATED 283 k/mm3 (150-450); RED CELL DISTRIBUTION WIDTH 12.9 % (11.5-14.5)
[2016-09-22 04:22] LABS: VENOUS BASE EXCESS -1.1 (-2.0-2.0); VENOUS O2 SATURATION 77.1 % (60.0-80.0); VENOUS PARTIAL PRESSURE CO2 52.5 mmHg (38.0-50.0); VENOUS PARTIAL PRESSURE O2 44.6 mmHg (30.0-50.0); VENOUS TOTAL CO2 27.7 MEQ/L (24.0-28.0)
[2016-09-22 04:43] LABS: ALBUMIN 4.2 GM/DL (3.2-5.2); ALBUMIN/GLOBULIN RATIO 1.56 (1.00-1.93); ALKALINE PHOSPHATASE 93 U/L (45-117); ALT/SGPT 297 U/L (12-78); ANION GAP 8 MEQ/L (8-16); AST/SGOT 290 U/L (15-37); BILIRUBIN,DIRECT 0.6 MG/DL (0.0-0.2); BILIRUBIN,TOTAL 1.9 MG/DL (0.2-1.0); BLOOD UREA NITROGEN 18 MG/DL (7-18); CALCIUM LEVEL 8.6 MG/DL (8.5-10.1); CARBON DIOXIDE LEVEL 27 MEQ/L (21-32); CHLORIDE LEVEL 103 MEQ/L (98-107); CREATININE FOR GFR 0.98 MG/DL (0.70-1.30); GLOMERULAR FILTRATION RATE > 60.0 (>60); GLUCOSE, FASTING 79 MG/DL (70-105); POTASSIUM SERUM 3.4 MEQ/L (3.5-5.1); SODIUM LEVEL 138 MEQ/L (136-145); TOTAL PROTEIN 6.9 GM/DL (6.4-8.2)
[2016-09-22 06:04] VITALS: BP 100/52
[2016-09-22] MEDS ORDERED: NS 1,000 ML IV ONE (09:15)
== END 2016-09-22 09:47 | disposition left against medical advice (07) ==
LOC: M ED 23:48
DX: F19.10 Other psychoactive substance abuse, uncomplicated (principal); M62.82 Rhabdomyolysis
CPT/HCPCS: 51701; 80048; 80076; 82550; 82803; 83930; 85025; 99283; G0480

== ENCOUNTER 2016-10-09 16:33 | Emergency (ER) | payer OTHER, SELFPAY ==
[~2016-10-09] VITALS: Ht 188 cm; Wt 67.7 kg
[2016-10-09 18:54] LABS: MEAN CORPUSCULAR HEMOGLOBIN 30.4 pg (27.0-33.0); MEAN CORPUSCULAR HGB CONC 33.6 g/dl (32.0-36.5); MEAN CORPUSCULAR VOLUME 90.6 fl (80.0-96.0); RED CELL DISTRIBUTION WIDTH 13.4 % (11.5-14.5); WHITE BLOOD COUNT 8.1 K/mm3 (4.0-10.0)
[2016-10-09 19:12] LABS: METHADONE URINE NEGATIVE (NEGATIVE)
[2016-10-09 19:24] LABS: ALBUMIN 3.9 GM/DL (3.2-5.2); ALBUMIN/GLOBULIN RATIO 1.18 (1.00-1.93); ALKALINE PHOSPHATASE 132 U/L (45-117); ALT/SGPT 308 U/L (12-78); ANION GAP 7 MEQ/L (8-16); AST/SGOT 111 U/L (15-37); BILIRUBIN,DIRECT 0.2 MG/DL (0.0-0.2); BILIRUBIN,TOTAL 0.7 MG/DL (0.2-1.0); BLOOD UREA NITROGEN 11 MG/DL (7-18); CALCIUM LEVEL 8.7 MG/DL (8.5-10.1); CARBON DIOXIDE LEVEL 26 MEQ/L (21-32); CHLORIDE LEVEL 107 MEQ/L (98-107); CREATININE FOR GFR 0.86 MG/DL (0.70-1.30); GLOMERULAR FILTRATION RATE > 60.0 (>60); GLUCOSE, FASTING 82 MG/DL (70-105); POTASSIUM SERUM 3.9 MEQ/L (3.5-5.1); SODIUM LEVEL 140 MEQ/L (136-145); TOTAL PROTEIN 7.2 GM/DL (6.4-8.2)
[2016-10-09 20:46] VITALS: BP 118/71
[2016-10-09] MEDS ORDERED: hydrOXYzine 50 MG TAB PO STA (20:50)
[2016-10-09] MEDS ORDERED: HYDR-3363 PO (21:26)
== END 2016-10-09 21:36 | disposition home or self-care (01) ==
LOC: M ED 16:33
DX: F41.9 Anxiety disorder, unspecified (principal); F14.19 Cocaine abuse with unspecified cocaine-induced disorder; F33.8 Other recurrent depressive disorders; G89.29 Other chronic pain; M54.9 Dorsalgia, unspecified; F17.210 Nicotine dependence, cigarettes, uncomplicated; Z88.5 Allergy status to narcotic agent

== ENCOUNTER 2016-10-13 23:34 | Emergency (ER) | payer OTHER ==
[~2016-10-13] VITALS: Ht 182.9 cm; Wt 69.0 kg
[~2016-10-13 23:34] MED LIST changes: +HYDR-3363 PO
[2016-10-13] MEDS ORDERED: LIDOCAINE W/EPINEPHRINE 1% 20ML VIAL As Ordered ONE (23:43)
[2016-10-13] MEDS ORDERED: BUPIVACAINE HCL 0.5% 10 ML VIAL As Ordered ONE (23:43)
[2016-10-13] MEDS ORDERED: LIDOCAINE W/EPINEPHRINE 1% 20ML VIAL SC ONE (23:45)
[2016-10-13] MEDS ORDERED: BUPIVACAINE HCL 0.5% 10 ML VIAL SC ONE (23:45)
[2016-10-14] MEDS ORDERED: ceFAZolin SOD 1 GM in D5W MINI-BAG PLUS 50 ML IV ONE (00:30)
[2016-10-14] MEDS ORDERED: ADACEL/BOOSTRIX VACCINE (DIPHTH/PERTUSS/ACELL/TETANUS)0.5ML SYR (90715) IM ONE (00:30)
[2016-10-14 00:32] LABS: MEAN CORPUSCULAR HEMOGLOBIN 30.6 pg (27.0-33.0); MEAN CORPUSCULAR HGB CONC 32.3 g/dl (32.0-36.5); MEAN CORPUSCULAR VOLUME 94.7 fl (80.0-96.0); RED CELL DISTRIBUTION WIDTH 13.2 % (11.5-14.5); WHITE BLOOD COUNT 8.5 K/mm3 (4.0-10.0)
[2016-10-14 00:56] LABS: ALBUMIN 3.7 GM/DL (3.2-5.2); ALBUMIN/GLOBULIN RATIO 1.16 (1.00-1.93); ALKALINE PHOSPHATASE 111 U/L (45-117); ALT/SGPT 314 U/L (12-78); ANION GAP 8 MEQ/L (8-16); AST/SGOT 175 U/L (15-37); BILIRUBIN,DIRECT 0.1 MG/DL (0.0-0.2); BILIRUBIN,TOTAL 0.7 MG/DL (0.2-1.0); BLOOD UREA NITROGEN 14 MG/DL (7-18); CALCIUM LEVEL 8.3 MG/DL (8.5-10.1); CARBON DIOXIDE LEVEL 26 MEQ/L (21-32); CHLORIDE LEVEL 103 MEQ/L (98-107); CREATININE FOR GFR 0.96 MG/DL (0.70-1.30); GLOMERULAR FILTRATION RATE > 60.0 (>60); GLUCOSE, FASTING 136 MG/DL (70-105); POTASSIUM SERUM 4.1 MEQ/L (3.5-5.1); SODIUM LEVEL 137 MEQ/L (136-145); TOTAL PROTEIN 6.9 GM/DL (6.4-8.2)
[2016-10-14] MEDS ORDERED: NS 1,000 ML IV ONE (01:15)
[2016-10-14] MEDS ORDERED: KETOROLAC 30 MG/ML VIAL (J1885) IV ONE (02:00)
[2016-10-14 02:06] LABS: METHADONE URINE NEGATIVE (NEGATIVE)
[2016-10-14] MEDS ORDERED: KEFL500C17 PO (06:06)
[2016-10-14] MEDS ORDERED: NORCOTAB PO (06:06)
[2016-10-14 06:15] VITALS: BP 96/59
[2016-10-14] MEDS ORDERED: PERC5TAB12 PO (17:18)
== END 2016-10-14 06:39 | disposition home or self-care (01) ==
LOC: M ED 23:34 → EDBD 23:34 → M ED 10-14 06:39
DX: S71.111A Laceration without foreign body, right thigh, initial encounter (principal); S76.921A Laceration of unspecified muscles, fascia and tendons at thigh level, right thigh, initial encounter; X99.1XXA Assault by knife, initial encounter; Y92.008 Other place in unspecified non-institutional (private) residence as the place of occurrence of the external cause; Y99.9 Unspecified external cause status; Y93.9 Activity, unspecified; Z23 Encounter for immunization; Z88.5 Allergy status to narcotic agent; Z79.899 Other long term (current) drug therapy
CPT/HCPCS: 13121; 13122; 80048; 80076; 80307; 80320; 80329; 84443; 85027; 96374; 96375; 99285; J0690; J1885

== ENCOUNTER 2016-10-14 16:30 | Emergency (ER) | payer OTHER ==
[~2016-10-14] VITALS: Ht 188 cm; Wt 68.1 kg
[2016-10-14 16:30] VITALS: BP 100/70
[~2016-10-14 16:30] MED LIST changes: +KEFL500C17 PO; +NORCOTAB PO
[2016-10-14] MEDS ORDERED: PERC5TAB12 PO (17:18)
[2016-10-14] MEDS ORDERED: PERCOCET 5MG/325MG TAB PO ONE (17:30)
== END 2016-10-14 18:11 | disposition home or self-care (01) ==
LOC: M ED 16:30
DX: Z51.89 Encounter for other specified aftercare (principal); Z88.5 Allergy status to narcotic agent

== ENCOUNTER 2016-10-19 13:45 | Emergency (ER) | payer OTHER ==
[~2016-10-19] VITALS: Ht 185.4 cm; Wt 75.0 kg
[~2016-10-19 13:45] MED LIST changes: +PERC5TAB12 PO
[2016-10-19 13:46] VITALS: BP 115/75
[2016-10-19] MEDS ORDERED: PERC5TAB12 PO (14:03)
== END 2016-10-19 14:21 | disposition home or self-care (01) ==
LOC: M ED 13:45
DX: S71.111D Laceration without foreign body, right thigh, subsequent encounter (principal); Z72.0 Tobacco use; X99.1XXD Assault by knife, subsequent encounter

== ENCOUNTER 2016-10-25 17:43 | Emergency (ER) | payer OTHER ==
[~2016-10-25] VITALS: Ht 185.4 cm; Wt 74.1 kg
[2016-10-25] MEDS ORDERED: NORCO 5/325MG TABLET (BULK FOR ED) PO ONE (19:45)
[2016-10-25] MEDS ORDERED: CLINDAMYCIN 150 MG CAP PO ONE (19:45)
[2016-10-25] MEDS ORDERED: CLEO300C2 PO (19:50)
[2016-10-25] MEDS ORDERED: NORCOTAB PO (19:50)
[2016-10-25 19:55] VITALS: BP 123/70
== END 2016-10-25 20:30 | disposition home or self-care (01) ==
LOC: M ED 17:43
DX: L03.115 Cellulitis of right lower limb (principal); X99.1XXD Assault by knife, subsequent encounter; Z72.0 Tobacco use

== ENCOUNTER 2016-10-31 16:22 | Emergency (ER) | payer OTHER ==
[~2016-10-31] VITALS: Ht 188 cm; Wt 75.5 kg
[~2016-10-31 16:22] MED LIST changes: +CLEO300C2 PO
[2016-10-31] MEDS ORDERED: ONDANSETRON 4MG/2ML VIAL (J2405) IV ONE (16:45)
[2016-10-31] MEDS ORDERED: fentaNYL 100 MCG/2 ML INJECTION (J3010) IV ONE ×2 (16:45→17:30)
[2016-10-31 17:48] LABS: BASO # 0.1 K/mm3 (0.0-0.2); BASO % 0.5 % (0.0-1.0); EOS # 0.4 K/mm3 (0.0-0.50); EOS % 3.4 % (0.0-3.0); LARGE UNSTAINED CELL # 0.3 K/mm3 (0.0-0.4); LARGE UNSTAINED CELL % 2.5 % (0.0-4.0); LYMPH # 2.4 K/mm3 (1.5-4.5); LYMPH % 18.7 % (24.0-44.0); MEAN CORPUSCULAR HEMOGLOBIN 30.4 pg (27.0-33.0); MEAN CORPUSCULAR HGB CONC 32.8 g/dl (32.0-36.5); MEAN CORPUSCULAR VOLUME 92.9 fl (80.0-96.0); MONO # 0.7 K/mm3 (0.0-0.8); MONO % 6.5 % (0.0-5.0); NEUTROPHILS # 7.7 K/mm3 (1.8-7.7); NEUTROPHILS % 68.4 % (36.0-66.0); PLATELET COUNT, AUTOMATED 424 k/mm3 (150-450); RED CELL DISTRIBUTION WIDTH 14.1 % (11.5-14.5); WHITE BLOOD COUNT 11.2 K/mm3 (4.0-10.0)
[2016-10-31 18:21] LABS: ANION GAP 4 MEQ/L (8-16); BLOOD UREA NITROGEN 10 MG/DL (7-18); CALCIUM LEVEL 8.8 MG/DL (8.5-10.1); CARBON DIOXIDE LEVEL 31 MEQ/L (21-32); CHLORIDE LEVEL 105 MEQ/L (98-107); CREATININE FOR GFR 0.85 MG/DL (0.70-1.30); GLOMERULAR FILTRATION RATE > 60.0 (>60); GLUCOSE, FASTING 95 MG/DL (70-105); POTASSIUM SERUM 3.8 MEQ/L (3.5-5.1); SODIUM LEVEL 140 MEQ/L (136-145)
[2016-10-31] MEDS ORDERED: HYDROmorphone HCL 1 MG/ML SYRINGE (J1170) IV ONE (18:30)
[2016-10-31] MEDS ORDERED: NS 1,000 ML IV SCH (18:30)
--- NOTE | 2016-10-31 19:25 | REP ---
LUMBAR SPINE COMPLETE: 10/31/2016. Clinical history: Trauma. Findings: Five views are provided. AP view shows posterior elements intact. SI joints, sacral ala and foramina intact. Lower thoracic spine and ribs intact. The oblique views show no spondylolysis or spondylolisthesis. Normal lordosis on the lateral view. No disc space narrowing or compression deformity Impression: 1. Disc space and vertebral body heights are intact. No compression deformity, malalignment, spondylolysis or other acute finding. Signed by Arash Sharp MD 11/01/2016 10:57 A
--- NOTE | 2016-10-31 19:29 | REP ---
BILATERAL ANKLE SERIES, COMPLETE: 10/31/2016. Clinical History: Trauma. Findings:RIGHT ANKLE: There is prominent soft tissue swelling around the ankle. Some behind the ankle may reflect injury and hematoma in the region of the Achilles. There is a comminuted fracture of the calcaneus. Some of that fracture extends to the anterior process of the calcaneus and its articular margin with the cuboid. The talus shows no fracture and the ankle mortise is preserved. The distal tibia and fibula are without gross evidence of fracture. Tarsal bones are intact. Subtalar joints intact. Impression: 1. Comminuted fracture of the right calcaneus with intra-articular component of the anterior process and posterior fracture that may extend to the subtalar joint. 2. Mortise joint preserved of the distal tibia, fibula and the talus grossly intact. LEFT ANKLE: There is an intraarticular vertically oriented fracture through the distal tibia and to the medial articular margin of the mortise joint involving the medial malleolus. I do not see a distal fibular fracture. Posterior malleolus grossly intact. The talar dome shows no osteochondral defect or definite fracture. Subtalar joints are intact. I do not see definite calcaneal fracture. There is soft tissue swelling anterior and posterior to the ankle. Impression: 1. Intra-articular vertically oriented fracture through the distal tibia at the medial corner of the ankle mortise joint involving the medial malleolus. No definite posterior malleolar fracture, fibula, talar or calcaneal fracture. Signed by Arash Sharp MD 11/01/2016 10:57 A
--- NOTE | 2016-10-31 19:32 | REP ---
BILATERAL TIBIA-FIBULA SERIES: 10/31/2016. Clinical history: Trauma. Findings: Four views of the tibia and fibula on each side are used to encompass the entirety of those bones. Right tibia-fibula: The tibia and fibula are without fracture of their shafts. That portion of knee and the proximal tibiofibular articulation were unremarkable. The distal bones and ankle mortise show no fracture, however, there is a comminuted right calcaneal fracture with intra-articular extension anteriorly and into the subtalar joint. Soft tissue swelling posterior to the ankle noted. I could not exclude Achilles injury versus injury related to the fractured calcaneus nearby. Impression: 1. Comminuted fracture of the calcaneus with some intraarticular extension of the talus. Tibia and fibula without fracture. Left tibia-fibula: There is a vertically oriented fracture through the distal tibia at the medial corner of the mortise joint involving the medial malleolus. No posterior malleolar fracture. No fibular fracture. The shaft of the tibia and fibula and their proximal articulation are normal. The left knee portion visible is unremarkable. There is no talar or calcaneal fracture. Subtalar joints are intact. Impression: 1. Vertically oriented fracture through the distal left tibia extending into the articular margin of the mortise joint involving the medial malleolus. No other fracture. Signed by Arash Sharp MD 11/01/2016 10:58 A
--- NOTE | 2016-10-31 19:34 | REP ---
BILATERAL FOOT SERIES COMPLETE: 10/31/2016. Clinical history: Trauma. Comparison: Bilateral ankle series this date. Findings:Right foot: Four views show prominent soft tissue swelling about the foot posteriorly. There is a comminuted fracture of the calcaneus with intra-articular extension suggested on the lateral projection for sustentaculum or calcaneocuboid articulation comminuted fragments laterally on the PA view. Subtalar joint extension. The other tarsal bones, metatarsals and phalanges are without fracture. Impression: 1. Comminuted fracture of the RIGHT calcaneus with some intra-articular extension. No other visible fracture. Left foot: Four views show soft tissue swelling around the ankle and hind foot. There is intra-articular fracture of the distal tibia better seen on the ankle series. The talus and calcaneus on the left show no definite acute fracture. Tarsal bones, metatarsals and phalanges are without fracture. Impression: 1. Distal tibial fracture on that left side, vertically oriented as seen on the ankle series. No other finding. Signed by Arash Sharp MD 11/01/2016 10:58 A
--- NOTE | 2016-10-31 19:35 | REP ---
BILATERAL CALCANEUS SERIES: 10/31/2016. Clinical history: Trauma. Comparison: Ankle and foot series this date. Findings: Left calcaneus: Subtalar joints grossly intact. Talonavicular and calcaneocuboid joints are preserved. I do not see definite left calcaneal fracture. Soft tissue swelling about the ankle. Vertically oriented fracture through the tibia is poorly seen on this study, well visualized on the ankle series. Right calcaneus: Four views provided. There is a comminuted fracture of the body and neck of the calcaneus with posterior extension to near the Achilles insertion and also subtalar joint extension suggested. A possible involvement of the sustentaculum lilia and/or calcaneocuboid joint also raised by these images. Signed by Arash Sharp MD 11/01/2016 10:59 A
[2016-10-31] MEDS: HYDROmorphone HCL 1 MG/ML SYRINGE (J1170) IV PRN ×2 (19:44→20:19)
[2016-10-31 20:17] VITALS: BP 120/82
== END 2016-10-31 20:20 | disposition short-term general hospital (02) ==
LOC: M ED 16:22
DX: S92.064A Nondisplaced intraarticular fracture of right calcaneus, initial encounter for closed fracture (principal); S82.392A Other fracture of lower end of left tibia, initial encounter for closed fracture; W11.XXXA Fall on and from ladder, initial encounter; Y92.099 Unspecified place in other non-institutional residence as the place of occurrence of the external cause; Y93.89 Activity, other specified; Y99.9 Unspecified external cause status
CPT/HCPCS: 72110; 73590; 73610; 73630; 73650; 80048; 85025; 93041; 94760; 96374; 96375; 96376; 99285; J1170; J2405; J3010

== ENCOUNTER → 2016-12-27 | Outpatient (CLI) | payer OTHER ==
[2016-12-27 11:53] LABS: ALBUMIN 3.9 GM/DL (3.2-5.2); ALBUMIN/GLOBULIN RATIO 1.15 (1.00-1.93); ALKALINE PHOSPHATASE 140 U/L (45-117); ALT/SGPT 154 U/L (12-78); ANION GAP 5 MEQ/L (8-16); AST/SGOT 75 U/L (15-37); BILIRUBIN,TOTAL 0.3 MG/DL (0.2-1.0); BLOOD UREA NITROGEN 14 MG/DL (7-18); CARBON DIOXIDE LEVEL 29 MEQ/L (21-32); CHLORIDE LEVEL 104 MEQ/L (98-107); CREATININE FOR GFR 0.78 MG/DL (0.70-1.30); GLOMERULAR FILTRATION RATE > 60.0 (>60); GLUCOSE, FASTING 101 MG/DL (70-105); POTASSIUM SERUM 4.1 MEQ/L (3.5-5.1); SODIUM LEVEL 138 MEQ/L (136-145); TOTAL PROTEIN 7.3 GM/DL (6.4-8.2)
[2016-12-27 12:18] LABS: HEPATITIS B SURFACE ANTIBODY NEGATIVE (POSITIVE)
== END ==
LOC: M LAB 10:47
PROVIDERS: ATTEND Student in an Organized Health Care Education/Training Program
DX: Z79.899 Other long term (current) drug therapy (principal)

== ENCOUNTER → 2017-01-01 | Outpatient (REF) | payer OTHER ==
[2017-01-01 16:05] LABS: INR 0.9
[2017-01-01 16:07] LABS: MEAN CORPUSCULAR HEMOGLOBIN 30.5 pg (27.0-33.0); MEAN CORPUSCULAR HGB CONC 33.3 g/dl (32.0-36.5); MEAN CORPUSCULAR VOLUME 91.8 fl (80.0-96.0); RED CELL DISTRIBUTION WIDTH 13.5 % (11.5-14.5); WHITE BLOOD COUNT 11.6 10^3/uL (4.0-10.0)
[2017-01-01 16:13] LABS: ALBUMIN 4.5 GM/DL (3.2-5.2); ALBUMIN/GLOBULIN RATIO 1.22 (1.00-1.93); BILIRUBIN,DIRECT 0.1 MG/DL (0.0-0.2); BILIRUBIN,TOTAL 0.4 MG/DL (0.2-1.0); TOTAL PROTEIN 8.2 GM/DL (6.4-8.2)
[2017-01-07 00:11] LABS: HEPATITIS C QUANTITATION 6618030 IU/mL (.); HEPATITIS C VIRUS GENOTYPE 1b (.)
== END ==
LOC: M SFHCPLAZ 12:54
PROVIDERS: ATTEND Family Medicine
DX: B19.20 Unspecified viral hepatitis C without hepatic coma (principal)

== ENCOUNTER → 2017-01-05 | Outpatient (CLI) | payer OTHER ==
[2017-01-14 08:11] LABS: ALT 169 IU/L (0-55); GGT 176 IU/L (0-65); HAPTOGLOBIN 150 mg/dL (34-200); NECROINFLAM SCORE 0.72 (0.00-0.17); NECROINFLAMM GRADE A3-Severe activity (.); TOTAL BILIRUBIN 0.3 mg/dL (0.0-1.2)
== END ==
LOC: M LAB 12:27
PROVIDERS: ATTEND Family Medicine
DX: B19.20 Unspecified viral hepatitis C without hepatic coma (principal)

== ENCOUNTER → 2017-03-04 | Outpatient (REF) | payer OTHER ==
[2017-03-04 15:52] LABS: ALBUMIN 4.7 GM/DL (3.2-5.2); ALBUMIN/GLOBULIN RATIO 1.34 (1.00-1.93); BILIRUBIN,DIRECT 0.2 MG/DL (0.0-0.2); BILIRUBIN,TOTAL 0.6 MG/DL (0.2-1.0); TOTAL PROTEIN 8.2 GM/DL (6.4-8.2)
[2017-03-07 10:15] LABS: HEPATITIS C QUANTITATION HCV Not Detected IU/mL (.)
== END ==
LOC: M SFHCPLAZ 14:02
PROVIDERS: ATTEND Internal Medicine Infectious Disease
DX: B18.2 Chronic viral hepatitis C (principal)

== ENCOUNTER 2017-03-09 16:24 | Emergency (ER) | payer OTHER ==
[~2017-03-09] VITALS: Ht 188 cm; Wt 78.6 kg
[2017-03-09 16:31] VITALS: BP 137/83
[2017-03-09] MEDS ORDERED: INDO25CA (16:37)
[2017-03-09] MEDS ORDERED: MELO15TA4 (16:37)
[2017-03-09] MEDS ORDERED: ASPI325T24 (16:37)
[2017-03-09] MEDS ORDERED: ZEPA1TAB PO (16:38)
[2017-03-09] MEDS ORDERED: OMEP10CASR PO (16:38)
[2017-03-09] MEDS ORDERED: NORCO 5/325MG TABLET (BULK FOR ED) PO ONE (18:00)
[2017-03-09] MEDS ORDERED: KETOROLAC 60 MG/2 ML VIAL (J1885) IM ONE (18:15)
== END 2017-03-09 19:11 | disposition home or self-care (01) ==
LOC: M ED 16:24
DX: Z76.0 Encounter for issue of repeat prescription (principal); G89.29 Other chronic pain; M79.671 Pain in right foot; F41.9 Anxiety disorder, unspecified; F33.9 Major depressive disorder, recurrent, unspecified; B19.20 Unspecified viral hepatitis C without hepatic coma; F19.10 Other psychoactive substance abuse, uncomplicated; Z79.899 Other long term (current) drug therapy; Z79.82 Long term (current) use of aspirin; Z88.5 Allergy status to narcotic agent
CPT/HCPCS: 96372; 99282; J1885